=== PATIENT | male | born 1965 | race Caucasian/White ===

== ENCOUNTER 2017-06-20 14:58 | Emergency (ER) | payer OTHER ==
[~2017-06-20] VITALS: Ht 185.4 cm; Wt 85.5 kg
[~2017-06-20 14:58] MED LIST: DIPH50TA PO; LISI-360 PO; PRED20 PO; RANI150 PO; VITA100020 SL
[2017-06-20 14:59] VITALS: BP 169/114; PULSE 101; RESP 20; TEMP 98.9; O2SAT 98
--- NOTE | 2017-06-20 15:51 | RADRPT ---
EXAM DATE/TIME: 06/20/2017 15:21 [facility] COMPARISON: CHEST PA & LAT, June 17, 2014, 12:49. INDICATIONS : Chest and rib pain after hearing a popping sound when raising left arm. MEDICAL HISTORY : Hypertension. SURGICAL HISTORY : None. ENCOUNTER: Initial ACUITY: 2 days PAIN SCORE: 6/10 LOCATION: Left chest FINDINGS: PA and lateral views of the chest demonstrate the lungs to be symmetrically aerated without evidence of mass, infiltrate or effusion. The cardiomediastinal contours are unremarkable. Osseous structure s are intact. CONCLUSION: 1. No acute cardiopulmonary disease. 2. No displaced acute rib fractures or pneumothorax. Renan Raya MD on June 20, 2017 at 15:48 Board Certified Radiologist. This report was verified electronically.
[2017-06-20] MEDS ORDERED: AMLO10TA2 PO (16:03)
--- NOTE | 2017-06-20 16:03 | PD ---
HPI Chief Complaint: Medication Refill Request Time Seen by Provider: 15:55 Travel History International Travel<30 days: No Contact w/Intl Traveler<30days: No Traveled to known affect area: No History of Present Illness HPI Patient is a 52-year-old male presenting to the department for evaluation of left rib pain after stretching and hearing a pop a few days ago. He is also requesting a refill of lisinopril. He states he is unable to see a new primary doctor for another week and a half and he is currently out. He reports a medical history of hypertension and hyperlipidemia. He has no other complaints at this time. He denies any chest pain, shortness of breath, fever, chills, headache. PFSH Past Medical History Depression: Yes Heart Rhythm Problems: No Cancer: No Cardiac Catheterization: No High Cholesterol: Yes Chest Pain: No Congestive Heart Failure: No Diabetes: No Diminished Hearing: No Endocrine: No Genitourinary: No Hepatitis: Yes (C) Hypertension: Yes Immune Disorder: No Inguinal Hernia: Yes Musculoskeletal: No Neurologic: No Psychiatric: No Reproductive: No Respiratory: No Immunizations Current: Yes Thyroid Disease: No Past Surgical History Abdominal Surgery: Yes (RIGHT INGUINAL HERNIA) Coronary Artery Bypass Graft: No Other Surgery: Yes (inguinal hernia repair) Social History Alcohol Use: No (1 pk/wk) Tobacco Use: Yes Substance Use: Yes (marijuana) Allergies-Medications (Allergen,Severity, Reaction): Coded Allergies: *MDRO Multi-Drug Resistant Organism (Verified Allergy, Unknown, 03/07/16) MRSA in arm 2006. MRSA PCR Screen negative 04/12/15. Reported Meds & Prescriptions Reported Meds & Active Scripts Active Amlodipine (Amlodipine Besylate) 10 Mg Tab 10 Mg PO DAILY Diphenhydramine Hcl (Diphenhydramine HCl) 50 Mg Cap 50 Mg PO Q6H PRN 7 Days Zantac 150 Mg Tab (Ranitidine HCl) 150 Mg Tab 150 Mg PO DAILY 7 Days Deltasone 20 Mg Tab (Prednisone) 20 Mg Tab 40 Mg PO DAILY 5 Days Reported Vitamin B-12 Extended Rel (Miscellaneous Medication) 1,000 Mcg Subl 1,000 Mcg SL DAILY Lisinopril 10 mg (Lisinopril) 10 Mg Tab 1 Tab PO DAILY Review of Systems Except as stated in HPI: all other systems reviewed are Neg Respiratory: Positive: Pleuritic Pain Physical Exam Narrative GENERAL: Well-developed, well-nourished, alert male. Resting comfortably in no acute distress. SKIN: Warm and dry. HEAD: Atraumatic. Normocephalic. EYES: Pupils equal and round. No scleral icterus. No injection or drainage. ENT: No nasal bleeding or discharge. Mucous membranes pink and moist. NECK: Trachea midline. No JVD. CARDIOVASCULAR: Regular rate and rhythm. RESPIRATORY: No accessory muscle use. Clear to auscultation. Breath sounds equal bilaterally. GASTROINTESTINAL: Abdomen soft, non-tender, nondistended. Hepatic and splenic margins not palpable. MUSCULOSKELETAL: Extremities without clubbing, cyanosis, or edema. No obvious deformities. Mild tenderness to palpation to left lateral ribs NEUROLOGICAL: Awake and alert. No obvious cranial nerve deficits. Motor grossly within normal limits. Five out of 5 muscle strength in the arms and legs. Normal speech. PSYCHIATRIC: Appropriate mood and affect; insight and judgment normal. Data Data Last Documented VS Vital Signs Date Time Temp Pulse Resp B/P (MAP) Pulse Ox O2 Delivery O2 Flow Rate FiO2 06/20/17 16:05 06/20/17 14:59 98.9 101 20 98 Room Air Orders Orders Chest, Pa & Lat (06/20/17 ) Ed Discharge Order (06/20/17 16:03) MDM Medical Decision Making Medical Screen Exam Complete: Yes Emergency Medical Condition: Yes Medical Record Reviewed: Yes Interpretation(s) Vital Signs Date Time Temp Pulse Resp B/P (MAP) Pulse Ox O2 Delivery O2 Flow Rate FiO2 06/20/17 14:59 98.9 101 20 169/114 (132) 98 Room Air Differential Diagnosis Fracture vs strain vs hypertension vs other Narrative Course Pt presented for refill of BP med, he had been on lisinopril. He has an appointment with a new PCP in 1.5 weeks. He also reported rib pain after reaching 2 days ago. BP elevated. Pt appears well. CXR ordered. CXR which was read by the radiologist shows no acute abnormality. Upon review of medical records pt had an elevated BUN/Cr last year, and it appears lisinopril was discontinued. At this time patient will be given a prescription for amlodipine. He was advised to follow up with new PCP as scheduled. He was encouraged to return to the ED for any new or worsening symptoms. He can take OTC acetaminophen or ibuprofen as needed and as directed for pain. Pt verbalized understanding of instructions, patient is stable for discharge. Diagnosis Primary Impression: Hypertension Qualified Codes: I10 - Essential (primary) hypertension Additional Impression: Rib pain on left side Referrals: Primary Care Physician 1 week Patient Instructions: General Instructions, Hypertension (ED) Additional Instructions: Follow-up with your primary doctor Take medications as directed Maintain adequate fluid intake Reduce sodium intake Return to emergency department for any new or worsening symptoms Take [id number] ibuprofen or acetaminophen as needed and as directed for pain Med/Other Pt SpecificInfo: Prescription(s) given Scripts Amlodipine (Amlodipine) 10 Mg Tab 10 MG PO DAILY for Blood Pressure Management, #30 TAB 0 Refills Prov: Donna Powell 06/20/17 Disposition: 01 DISCHARGE HOME Condition: Stable Donna Powell Jun 20, 2017 16:03
== END 2017-06-20 16:10 | disposition home or self-care (01) ==
LOC: NETRI 14:58 → NEPE 16:10
DX: I10 Essential (primary) hypertension (principal); R07.81 Pleurodynia; Z72.0 Tobacco use
CPT/HCPCS: 71020; 99283

== ENCOUNTER 2017-08-15 21:50 | Inpatient (IN) | payer OTHER ==
[~2017-08-15] VITALS: Ht 185.4 cm; Wt 87.2 kg
[~2017-08-15 21:50] MED LIST changes: +AMLO10TA2 PO
[2017-08-15 21:51] VITALS: BP 173/112; PULSE 115; RESP 22; TEMP 98.1; O2SAT 100
[2017-08-15 21:56] VITALS: BP 174/118; PULSE 107; RESP 20; TEMP 97.7; O2SAT 97
[2017-08-15] MEDS ORDERED: LISI10TA3 PO (22:04)
--- NOTE | 2017-08-15 22:12 | PD ---
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 He has never had a stress test he has reactive history his mother at the age of 57 had a stroke. Patient's main complaint is a burning sensation that radiates from his hand up to his left chest it continues in the ER and is getting worse today he has not seen another doctor for this he's taken ibuprofen intermittently with mild relief however continues and now is getting worse. Denies nausea vomiting diarrhea however he does have some shortness of breath. He also has had a pneumonia in the past which she was in the ER and had been treated with antibiotics and DuoNeb's. He is mildly hypertensive systolic is 177 on initial eval COUNTS INCLUDE 234 BEDS AT THE [facility] Past Medical History Depression: Yes Cardiac Catheterization: No High Cholesterol: Yes Diminished Hearing: No Hepatitis: Yes (C) Hypertension: Yes Inguinal Hernia: Yes Immunizations Current: Yes Past Surgical History Abdominal Surgery: Yes (RIGHT INGUINAL HERNIA) Coronary Artery Bypass Graft: No Social History Alcohol Use: No (1 pk/wk) Tobacco Use: Yes Substance Use: Yes (marijuana) Allergies-Medications (Allergen,Severity, Reaction): Coded Allergies: *MDRO Multi-Drug Resistant Organism (Verified Allergy, Unknown, 03/07/16) MRSA in arm 2006. MRSA PCR Screen negative 04/12/15. Reported Meds & Prescriptions Reported Meds & Active Scripts Active Reported Lisinopril 10 Mg Tab 10 Mg PO DAILY Review of Systems Except as stated in HPI: all other systems reviewed are Neg Physical Exam Narrative GENERAL: Patient appears to be mildly uncomfortable pressure is 174 systolic SKIN: Warm and dry. HEAD: Atraumatic. Normocephalic. EYES: Pupils equal and round. No scleral icterus. No injection or drainage. ENT: No nasal bleeding or discharge. Mucous membranes pink and moist. NECK: Trachea midline. No JVD. CARDIOVASCULAR: Regular rate and rhythm. Patient's mother tachycardic pressure is 174 systolic. Chest wall I am unable to reproduce the pain that he is complaining of with percussion of his ribs RESPIRATORY: No accessory muscle use. wheeze diffuse GASTROINTESTINAL: Abdomen soft, non-tender, nondistended. Hepatic and splenic margins not palpable. MUSCULOSKELETAL: Extremities without clubbing, cyanosis, or edema. No obvious deformities. NEUROLOGICAL: Awake and alert. No obvious cranial nerve deficits. Motor grossly within normal limits. Five out of 5 muscle strength in the arms and legs. Normal speech. PSYCHIATRIC: Appropriate mood and affect; insight and judgment normal. Data Data Last Documented VS Vital Signs Date Time Temp Pulse Resp B/P (MAP) Pulse Ox O2 Delivery O2 Flow Rate FiO2 08/15/17 22:57 96 21 08/15/17 21:56 97.7 107 20 174/118 (136) 08/15/17 21:51 Room Air Orders Orders Electrocardiogram (08/15/17 22:08) Complete Blood Count With Diff (08/15/17 22:08) Comprehensive Metabolic Panel (08/15/17 22:08) Ckmb (Isoenzyme) Profile (08/15/17 22:08) Troponin I (08/15/17 22:08) Lipase (08/15/17 22:08) Ua Includes Microscopic (08/15/17 22:08) Magnesium (Mg) (08/15/17 22:08) Potassium, Serum (K) (08/15/17 22:08) Thyroid Stimulating Hormone (08/15/17 22:08) Chest, Pa & Lat (08/15/17 22:08) Aspirin Chew (Aspirin Chew) (08/15/17 22:15) Pantoprazole Inj (Protonix Inj) (08/15/17 22:15) Albuterol-Ipratropium Neb (Duoneb Neb) (08/15/17 22:15) CKMB (08/15/17 22:10) CKMB% (08/15/17 22:10) Heparin Inj (Heparin Inj) (08/15/17 23:30) Heparin-D5w 25,000 U/250 Ml (Heparin-D5w (08/15/17 23:30) Act Partial Throm Time (Ptt) (08/15/17 23:23) Prothrombin Time / Inr (Pt) (08/15/17 23:23) Cbc No Diff, Includes Plts (08/18/17 06:00) Act Partial Throm Time (Ptt) (08/16/17 06:23) Occult Blood (Hemoccult) Stool (08/15/17 23:23) Nitroglycerin 2% Oint (Nitroglycerin 2% (08/15/17 23:30) Morphine Inj (Morphine Inj) (08/15/17 23:45) Metoprolol Tartrate (Lopressor) (08/16/17 00:00) Admit Order (Ed Use Only) (08/15/17 23:53) Admit To Inpatient (08/15/17 ) Vital Signs (Adult) Q4H (08/15/17 23:54) Activity Oob With Assistance (08/15/17 23:54) District Sales Leader / Telemetry .CONTINUOUS (08/15/17 23:54) Diet Npo (08/16/17 Breakfast) Sodium Chloride 0.9% Flush (Ns Flush) (08/16/17 00:00) Sodium Chloride 0.9% Flush (Ns Flush) (08/16/17 09:00) Complete Blood Count With Diff (08/16/17 06:00) Creatine Kinase (Cpk) (08/16/17 05:00) Troponin I (08/16/17 05:00) Electrocardiogram (08/16/17 05:00) Electrocardiogram (08/16/17 11:00) Naloxone Inj (Narcan Inj) (08/16/17 00:00) Inpatient Certification (08/15/17 ) Labs Laboratory Tests Test 08/15/17 22:10 08/15/17 22:33 White Blood Count 3.7 TH/MM3 Red Blood Count 4.88 MIL/MM3 Hemoglobin 13.9 GM/DL Hematocrit 41.1 % Mean Corpuscular Volume 84.2 FL Mean Corpuscular Hemoglobin 28.5 PG Mean Corpuscular Hemoglobin Concent 33.8 % Red Cell Distribution Width 15.2 % Platelet Count 181 TH/MM3 Mean Platelet Volume 8.1 FL Neutrophils (%) (Auto) 55.5 % Lymphocytes (%) (Auto) 32.3 % Monocytes (%) (Auto) 7.2 % Eosinophils (%) (Auto) 4.3 % Basophils (%) (Auto) 0.7 % Neutrophils # (Auto) 2.1 TH/MM3 Lymphocytes # (Auto) 1.2 TH/MM3 Monocytes # (Auto) 0.3 TH/MM3 Eosinophils # (Auto) 0.2 TH/MM3 Basophils # (Auto) 0.0 TH/MM3 CBC Comment DIFF FINAL Differential Comment Prothrombin Time 9.6 SEC Prothromb Time International Ratio 0.9 RATIO Activated Partial Thromboplast Time 25.2 SEC Blood Urea Nitrogen 22 MG/DL Creatinine 1.23 MG/DL Random Glucose 112 MG/DL Total Protein 7.9 GM/DL Albumin 3.4 GM/DL Calcium Level 7.9 MG/DL Magnesium Level 1.9 MG/DL Alkaline Phosphatase 106 U/L Aspartate Amino Transf (AST/SGOT) 29 U/L Alanine Aminotransferase (ALT/SGPT) 44 U/L Total Bilirubin 0.5 MG/DL Sodium Level 137 MEQ/L Potassium Level 4.4 MEQ/L Chloride Level 105 MEQ/L Carbon Dioxide Level 22.3 MEQ/L Anion Gap 10 MEQ/L Estimat Glomerular Filtration Rate 62 ML/MIN Total Creatine Kinase 105 U/L Creatine Kinase MB 4.9 NG/ML Troponin I 0.42 NG/ML B-Type Natriuretic Peptide 986 PG/ML Lipase 121 U/L Thyroid Stimulating Hormone 3rd Gen 2.940 uIU/ML Urine Color YELLOW Urine Turbidity CLEAR Urine pH 6.0 Urine Specific [place] 1.021 Urine Protein 30 mg/dL Urine Glucose (UA) NEG mg/dL Urine Ketones NEG mg/dL Urine Occult Blood NEG Urine Nitrite NEG Urine Bilirubin NEG Urine Urobilinogen LESS THAN 2.0 MG/DL Urine Leukocyte Esterase NEG Urine RBC 1 /hpf Urine WBC 1 /hpf Urine Mucus FEW /lpf MDM Medical Decision Making Medical Screen Exam Complete: Yes Emergency Medical Condition: Yes Interpretation(s) EKG is normal sinus rhythm rate of [address] segments in V4 V5 and mildly and V3 there are no elevations and there is left ventricular hypertrophy pattern Differential Diagnosis Differential diagnoses include costochondritis versus PE versus pneumonia versus pleural effusion versus myocardial ischemia versus traumatic muscle strain versus other Narrative Course Patient's EKG has depressed ST segment in V4 V5 and patient's troponin returns 0.42 patient is immediately given nitro paste aspirin and heparin bolus heparin drip and admitted to telemetry any CIC give report to the hospitalist will be seen by cardiology in the morning for possible catheter patient denies chest pain at this time Critical Care Narrative 30 minutes critical cardiac care evaluating EKG evaluated troponins giving him critical care medications to prevent any further coagulopathy or clotting at the coronary arteries and admitted to monitor closely in the ER he is monitored for over an hour Diagnosis Primary Impression: NSTEMI (non-ST elevated myocardial infarction) Additional Impression: Abnormal electrocardiogram [ECG] [EKG] Admitting Information Admitting Physician Requests: Admit Johnson Cook MD Aug 15, 2017 22:12
[2017-08-15] MEDS ORDERED: ASPIRIN 81 MG CHEW TAB CHEW ONE (22:15)
[2017-08-15] MEDS ORDERED: RESP: ALBUTEROL 2.5 MG/IPRATROPIUM 0.5 MG NEB (SCH) NEB ONE (22:15)
[2017-08-15] MEDS ORDERED: PANTOPRAZOLE SODIUM 40 MG VIAL IV PUSH ONE (22:15)
[2017-08-15 22:35] LABS: AUTOMATED NEUTROPHIL # 2.1 TH/MM3 (1.8-7.7); BASOPHIL % 0.7 % (0.0-2.0); EOSINOPHIL # 0.2 TH/MM3 (0-0.4); EOSINOPHIL % 4.3 % (0.0-4.0); HEMATOCRIT 41.1 % (39.0-51.0); HEMOGLOBIN 13.9 GM/DL (13.0-17.0); LYMPH % 32.3 % (9.0-44.0); LYMPHOCYTE # 1.2 TH/MM3 (1.0-4.8); MEAN CELL VOLUME 84.2 FL (80.0-100.0); MEAN CORPUSCULAR HEMOGLOBIN 28.5 PG (27.0-34.0); MEAN CORPUSCULAR HGB CONC 33.8 % (32.0-36.0); MEAN PLATELET VOLUME 8.1 FL (7.0-11.0); MONO % 7.2 % (0.0-8.0); MONOCYTE # 0.3 TH/MM3 (0-0.9); NEUT % 55.5 % (16.0-70.0); PLATELET COUNT 181 TH/MM3 (150-450); RED BLOOD COUNT 4.88 MIL/MM3 (4.50-5.90); RED CELL DISTRIBUTION WIDTH 15.2 % (11.6-17.2); WHITE BLOOD COUNT 3.7 TH/MM3 (4.0-11.0)
--- NOTE | 2017-08-15 22:37 | RADRPT ---
EXAM DATE/TIME: 08/15/2017 22:21 [facility] COMPARISON: CHEST PA & LAT, June 20, 2017, 15:21. INDICATIONS : Left sided chest pain, shortness of breath for 4 days MEDICAL HISTORY : Hypertension. SURGICAL HISTORY : None. ENCOUNTER: Initial ACUITY: 4 - 6 days PAIN SCORE: 9/10 LOCATION: Left chest FINDINGS: PA and lateral views of the chest demonstrate the lungs to be symmetrically aerated without evidence of mass, infiltrate or effusion. Mild cardiomegaly. No pulmonary vascular engorgement. Old stable com pression deformity involving the approximate L1 vertebral body. CONCLUSION: Mild cardiomegaly without pulmonary vascular engorgement. Bud Tolentino Jr., MD on August 15, 2017 at 22:34 Board Certified Radiologist. This report was verified electronically.
[2017-08-15 22:44] LABS: BILIRUBIN, URINE NEG (NEG); BLOOD, URINE NEG (NEG); GLUCOSE,URINE NEG (NEG); KETONE, URINE NEG (NEG); MUCUS URINE FEW /lpf (OCC); NITRITE,URINE NEG (NEG); URINE COLOR YELLOW (YELLW/STRAW); URINE LEUKOCYTE ESTERASE NEG (NEG)
[2017-08-15 22:57] VITALS: O2SAT 96
[2017-08-15 23:07] LABS: ALBUMIN 3.4 GM/DL (3.4-5.0); AST (GOT) 29 U/L (15-37); BICARBONATE 22.3 MEQ/L (21.0-32.0); BLOOD UREA NITROGEN 22 MG/DL (7-18); CALCIUM 7.9 MG/DL (8.5-10.1); CHLORIDE 105 MEQ/L (98-107); CREATININE 1.23 MG/DL (0.60-1.30); GLOMERULAR FILTRATION RATE 62 ML/MIN (>89); GLUCOSE,RANDOM 112 MG/DL (74-106); LIPASE 121 U/L (73-393); MAGNESIUM 1.9 MG/DL (1.5-2.5); SODIUM (NA) 137 MEQ/L (136-145)
[2017-08-15 23:16] LABS: ALKALINE PHOSPHATASE 106 U/L (45-117); ALT (GPT) 44 U/L (12-78); TOTAL BILIRUBIN ADULT 0.5 MG/DL (0.2-1.0); TOTAL PROTEIN 7.9 GM/DL (6.4-8.2); TROPONIN I 0.42 NG/ML (0.02-0.05)
[2017-08-15] MEDS ORDERED: NITROGLYCERIN 2% OINT 1 GM PACKET TOPICAL ONE (23:30)
[2017-08-15] MEDS ORDERED: HEPARIN-D5W 25,000 U/250 ML 250 ML IV PRN (23:30)
[2017-08-15] MEDS ORDERED: HEPARIN SODIUM - IV 10,000 UNITS/10 ML VIAL IV ONE (23:30)
[2017-08-15] MEDS ORDERED: MORPHINE SULFATE 2 MG/ML INJ IV PUSH ONE (23:45)
[2017-08-16] VITALS (18 sets, daily range): BP systolic 105–143; BP diastolic 65–87; PULSE 77–102; RESP 16–29; TEMP 97.7–98.7; O2SAT 95–99
[2017-08-16] MEDS ORDERED: NALOXONE HCL 0.4 MG/ML AMP IV PUSH PRN
[2017-08-16] MEDS ORDERED: METOPROLOL TARTRATE 25 MG TAB PO ONE
[2017-08-16] MEDS ORDERED: NITROGLYCERIN 0.4 MG SL 25 TABS/BTL SL PRN
[2017-08-16 00:06] LABS: INTERNATIONAL NORMALIZED RATIO 0.9 RATIO; PROTHROMBIN TIME - PATIENT 9.6 SEC (9.8-11.6)
[2017-08-16] MEDS ORDERED: RESP: IPRATROPIUM 0.5 MG/2.5 ML NEB NEB ONE (01:15)
[2017-08-16] MEDS ORDERED: RESP: ALBUTEROL 2.5 MG/IPRATROPIUM 0.5 MG NEB (SCH) NEB ONE (01:15)
--- NOTE | 2017-08-16 01:20 | HHI.HP ---
[facility] Titus Eli MD Admission Diagnosis non stemi Diagnoses: Chief Complaint: Chest pain Travel History International Travel<30 Days: No Contact w/Intl Traveler <30 Da: No Traveled to Known Affected Are: No History of Present Illness 52-year-old male with a history of hypertension, HIV, and hep C presented to the ED with a 2 week long history of chest pain. He describes the chest pain as pressure-like, intermittent 10 /10, worse with exertion with associated shortness of breath. Patient states he notices when he does heavy lifting at work and he overexerts himself he begins to have chest pain that radiates to his left arm and he begins to have shortness of breath, he also experiences shortness of breath at night when laying flat. He has been out of his blood pressure medicines for the past 2 days with states his blood pressure has not been well controlled. He has not been able to get into see his primary care physician. He denies any recent fever, chills, or headaches. Past Family Social History Past Medical History Hep C HIV (not on medication) HTN Past Surgical History Hernia repair Nasal surgery Reported Medications Reported Meds & Active Scripts Active Reported Lisinopril 10 Mg Tab 10 Mg PO DAILY Allergies: Coded Allergies: No Known Allergies (Unverified , 08/16/17) Active Ordered Medications Current Medications Medications (Trade) Dose Ordered Sig/[place] Route Start Time Stop Time Status Last Admin Heparin Sodium/ Dextrose 250 ml @ 11 mls/hr TITRATE PRN IV 08/15/17 23:30 08/16/17 00:10 (NS Flush) 2 ml UNSCH PRN IV FLUSH 08/16/17 00:00 (NS Flush) 2 ml BID IV FLUSH 08/16/17 09:00 (Narcan Inj) 0.4 mg UNSCH PRN IV PUSH 08/16/17 00:00 (Ecotrin Ec) 325 mg DAILY PO 08/16/17 09:00 (Nitrostat Sl) 0.4 mg Q5M PRN SL 08/16/17 00:00 (Coreg) 3.125 mg Q12HR PO 08/16/17 09:00 Family History Mom: CVA, heart disease Dad: DM Social History Tobacco use: 1/2 PPD Alcohol use: Denies Illicit drug use: Denies Physical Exam Vital Signs Vital Signs Date Time Temp Pulse Resp B/P (MAP) Pulse Ox O2 Delivery O2 Flow Rate FiO2 08/15/17 22:57 96 21 08/15/17 21:56 97.7 107 20 174/118 (136) 97 08/15/17 21:51 98.1 115 22 173/112 (132) 100 Room Air Physical Exam GENERAL: This is a well-nourished, well-developed patient, in no apparent distress. SKIN: No rashes, ecchymoses or lesions. Cool and dry. HEAD: Atraumatic. Normocephalic. EYES: Pupils equal round and reactive. ENT: Nose without bleeding, purulent drainage or septal hematoma. Airway patent. NECK: Trachea midline. No JVD or lymphadenopathy. CARDIOVASCULAR: Regular rate and rhythm without murmurs, gallops, or rubs. RESPIRATORY: Left base crakles, Scattered wheezes, no rales, or rhonchi. GASTROINTESTINAL: Abdomen soft, non-tender, nondistended. MUSCULOSKELETAL: Extremities without clubbing, cyanosis, or edema. No joint tenderness, effusion, or edema noted. No calf tenderness. NEUROLOGICAL: Awake and alert. Motor and sensory grossly within normal limits. Normal speech. Laboratory Laboratory Tests Test 08/15/17 22:10 08/15/17 22:33 White Blood Count 3.7 Red Blood Count 4.88 Hemoglobin 13.9 Hematocrit 41.1 Mean Corpuscular Volume 84.2 Mean Corpuscular Hemoglobin 28.5 Mean Corpuscular Hemoglobin Concent 33.8 Red Cell Distribution Width 15.2 Platelet Count 181 Mean Platelet Volume 8.1 Neutrophils (%) (Auto) 55.5 Lymphocytes (%) (Auto) 32.3 Monocytes (%) (Auto) 7.2 Eosinophils (%) (Auto) 4.3 Basophils (%) (Auto) 0.7 Neutrophils # (Auto) 2.1 Lymphocytes # (Auto) 1.2 Monocytes # (Auto) 0.3 Eosinophils # (Auto) 0.2 Basophils # (Auto) 0.0 CBC Comment DIFF FINAL Differential Comment Prothrombin Time 9.6 Prothromb Time International Ratio 0.9 Activated Partial Thromboplast Time 25.2 Blood Urea Nitrogen 22 Creatinine 1.23 Random Glucose 112 Total Protein 7.9 Albumin 3.4 Calcium Level 7.9 Magnesium Level 1.9 Alkaline Phosphatase 106 Aspartate Amino Transf (AST/SGOT) 29 Alanine Aminotransferase (ALT/SGPT) 44 Total Bilirubin 0.5 Sodium Level 137 Potassium Level 4.4 Chloride Level 105 Carbon Dioxide Level 22.3 Anion Gap 10 Estimat Glomerular Filtration Rate 62 Total Creatine Kinase 105 Creatine Kinase MB 4.9 Troponin I 0.42 Lipase 121 Thyroid Stimulating Hormone 3rd Gen 2.940 Urine Color YELLOW Urine Turbidity CLEAR Urine pH 6.0 Urine Specific [place] 1.021 Urine Protein 30 Urine Glucose (UA) NEG Urine Ketones NEG Urine Occult Blood NEG Urine Nitrite NEG Urine Bilirubin NEG Urine Urobilinogen LESS THAN 2.0 Urine Leukocyte Esterase NEG Urine RBC 1 Urine WBC 1 Urine Mucus FEW Result Diagram: 08/15/[id number] Imaging Last Impressions Chest X-Ray 08/15/172207 Signed Impressions: Service Date/Time: Tuesday, August 15, 2017 22:21 - CONCLUSION: Mild cardiomegaly without pulmonary vascular engorgement. Bud Tolentino Jr., MD [place] VTE Risk Assessment Caprini VTE Risk Assessment: Mod/High Risk (score >= 2) Caprini Risk Assessment Model Point Value = 1 Point Value = 2 Point Value = 3 Point Value = 5 Age 41-60 Minor surgery BMI > 25 kg/m2 Swollen legs Varicose veins or History of unexplained or recurrent spontaneous Oral contraceptives or hormone replacement Sepsis (< 1 month) Serious lung disease, including pneumonia (< 1 month) Abnormal pulmonary function Acute myocardial infarction Congestive heart failure (< 1 month) History of inflammatory bowel disease Medical patient at bed rest Age 61-74 Arthroscopic surgery Major open surgery (> 45 min) Laparoscopic surgery (> 45 min) Malignancy Confined to bed (> 72 hours) Immobilizing plaster cast Central venous access Age >= 75 History of VTE Family history of VTE Factor V Leiden Prothrombin [id number] Lupus anticoagulant Anticardiolipin antibodies Elevated serum homocysteine Heparin-induced thrombocytopenia Other congenital or acquired thrombophilia Stroke (< 1 month) Elective arthroplasty Hip, pelvis, or leg fracture Acute spinal cord injury (< 1 month) Prophylaxis Regimen Total Risk Factor Score Risk Level Prophylaxis Regimen 0-1 Low Early ambulation 2 Moderate Order ONE of the following: *Sequential Compression Device (SCD) *Heparin 5000 units SQ BID 3-4 Higher Order ONE of the following medications: *Heparin 5000 units SQ TID *Enoxaparin/Lovenox 40 mg SQ daily (WT < 150 kg, CrCl > 30 mL/min) *Enoxaparin/Lovenox 30 mg SQ daily (WT < 150 kg, CrCl > 10-29 mL/min) *Enoxaparin/Lovenox 30 mg SQ BID (WT < 150 kg, CrCl > 30 mL/min) AND/OR *Sequential Compression Device (SCD) 5 or more Highest Order ONE of the following medications: *Heparin 5000 units SQ TID (Preferred with Epidurals) *Enoxaparin/Lovenox 40 mg SQ daily (WT < 150 kg, CrCl > 30 mL/min) *Enoxaparin/Lovenox 30 mg SQ daily (WT < 150 kg, CrCl > 10-29 mL/min) *Enoxaparin/Lovenox 30 mg SQ BID (WT < 150 kg, CrCl > 30 mL/min) AND *Sequential Compression Device (SCD) Assessment and Plan Problem List: (1) NSTEMI (non-ST elevated myocardial infarction) ICD Code: I21.4 - Non-ST elevation (NSTEMI) myocardial infarction Status: Acute (2) Hypertension ICD Code: I10 - Hypertension Status: Chronic (3) CHF (congestive heart failure) ICD Code: I50.9 - Heart failure, unspecified Assessment and Plan 52-year-old male with a history of hypertension and hep C presented to the ED with a 2 week long history of chest pain. NSTEMI, troponin .4 EKG reviewed and shows sinus tachycardia, no ST elevation -Serial troponin and EKGs -Consult cardiology -Nitropaste and coreg ordered -Heparin Drip -Pain management with IV morphine Questionable CHF, new onset, patient with orthopnea and crackles in left lung base -BNP ordered, BNP 926, lasix 20mg IV ordered -2D echo ordered HTN, chronic, currently uncontrolled -Resume home lisinopril, adjust as needed -monitor vitals DVT prophylaxis: Heparin Discussed Condition With Patient and RN Physician Certification 2 Midnight Certification Type: Admission for Inpatient Services Order for Inpatient Services The services are ordered in accordance with Medicare regulations or non- Medicare payer requirements, as applicable. In the case of services not specified as inpatient-only, they are appropriately provided as inpatient services in accordance with the 2-midnight benchmark. Estimated LOS (days): 2 days is the estimated time the patient will need to remain in the hospital, assuming treatment plan goals are met and no additional complications. Post-Hospital Plan: Home Bonita Keith Aug 16, 2017 01:20
[2017-08-16] MEDS ORDERED: MORPHINE SULFATE 2 MG/ML INJ IM PRN (01:30)
[2017-08-16] MEDS ORDERED: FUROSEMIDE 20 MG/2 ML VIAL IV PUSH ONE (02:15)
[2017-08-16] MEDS ORDERED: RESP: ALBUTEROL 2.5 MG/IPRATROPIUM 0.5 MG NEB (SCH) NEB (04:00)
[2017-08-16] MEDS: MORPHINE SULFATE 2 MG/ML INJ IV PUSH PRN ×4 (04:59→19:02)
[2017-08-16] MEDS: RESP: IPRATROPIUM 0.5 MG/2.5 ML NEB NEB SCH ×6 (05:56→23:39)
[2017-08-16 06:23] LABS: AUTOMATED NEUTROPHIL # 1.1 TH/MM3 (1.8-7.7); BASOPHIL % 0.9 % (0.0-2.0); EOSINOPHIL # 0.1 TH/MM3 (0-0.4); HEMOGLOBIN 12.3 GM/DL (13.0-17.0); LYMPHOCYTE # 0.9 TH/MM3 (1.0-4.8); MEAN CELL VOLUME 84.1 FL (80.0-100.0); MEAN CORPUSCULAR HEMOGLOBIN 28.7 PG (27.0-34.0); MEAN CORPUSCULAR HGB CONC 34.2 % (32.0-36.0); MEAN PLATELET VOLUME 8.2 FL (7.0-11.0); MONO % 9.4 % (0.0-8.0); MONOCYTE # 0.2 TH/MM3 (0-0.9); NEUT % 46.7 % (16.0-70.0); PLATELET COUNT 173 TH/MM3 (150-450); RED BLOOD COUNT 4.28 MIL/MM3 (4.50-5.90); RED CELL DISTRIBUTION WIDTH 15.1 % (11.6-17.2); WHITE BLOOD COUNT 2.4 TH/MM3 (4.0-11.0)
[2017-08-16 06:50] LABS: BICARBONATE 21.8 MEQ/L (21.0-32.0); CALCIUM 8.4 MG/DL (8.5-10.1); CREATININE 1.05 MG/DL (0.60-1.30)
[2017-08-16 07:01] LABS: TROPONIN I 0.68 NG/ML (0.02-0.05)
[2017-08-16] MEDS ORDERED: SODIUM CHLORIDE 0.9% FLUSH 10 ML FLUSH IV FLUSH SCH (09:00)
[2017-08-16] MEDS ORDERED: ASPIRIN EC 325 MG TABEC PO SCH (09:00)
[2017-08-16] MEDS: LISINOPRIL 10 MG TAB PO SCH (09:21)
[2017-08-16] MEDS: FUROSEMIDE 20 MG/2 ML VIAL IV PUSH SCH ×2 (09:21→17:00)
[2017-08-16] MEDS: CARVEDILOL 3.125 MG TAB PO SCH ×2 (09:21→21:27)
--- NOTE | 2017-08-16 11:18 | HHI.PR ---
Subjective Remarks Follow-up non-ST elevation [place] 08/16/17-patient seen and examined, still with chest pain along with shortness of breath. Currently nothing by mouth pending left heart catheterization this afternoon. Objective Vitals Vital Signs Date Time Temp Pulse Resp B/P (MAP) Pulse Ox O2 Delivery O2 Flow Rate FiO2 08/16/17 04:30 97.7 77 18 118/79 (92) 99 08/16/17 04:15 79 16 107/65 (79) 95 08/16/17 02:03 18 08/16/17 01:46 82 18 131/78 (95) 96 Room Air 08/16/17 00:00 90 16 143/86 (105) 97 Room Air 08/15/17 22:57 96 21 08/15/17 21:56 97.7 107 20 174/118 (136) 97 08/15/17 21:51 98.1 115 22 173/112 (132) 100 Room Air I/O 08/15/17 08/15/17 08/15/17 08/16/17 08/16/17 08/16/17 07:00 15:00 23:00 07:00 15:00 23:00 Output Total 1400 ml Balance -1400 ml Output Urine Total 1400 ml # Bowel Movements 0 Result Diagram: 08/16/17 0610 08/16/17 0610 Imaging Last Impressions Chest X-Ray 08/15/172207 Signed Impressions: Service Date/Time: Tuesday, August 15, 2017 22:21 - CONCLUSION: Mild cardiomegaly without pulmonary vascular engorgement. Bud Tolentino Jr., MD Objective Remarks GENERAL: NAD SKIN: Warm and dry. HEAD: Normocephalic. EYES: No scleral icterus. No injection or drainage. NECK: Supple, trachea midline. No JVD or lymphadenopathy. CARDIOVASCULAR: Regular rate and rhythm without murmurs, gallops, or rubs. RESPIRATORY: Breath sounds equal bilaterally. No accessory muscle use. GASTROINTESTINAL: Abdomen soft, non-tender, nondistended. MUSCULOSKELETAL: No cyanosis, or edema. BACK: Nontender without obvious deformity. No CVA tenderness. A/P Problem List: (1) NSTEMI (non-ST elevated myocardial infarction) ICD Code: I21.4 - Non-ST elevation (NSTEMI) myocardial infarction Status: Acute (2) Hypertension ICD Code: I10 - Hypertension Status: Chronic (3) CHF (congestive heart failure) ICD Code: I50.9 - Heart failure, unspecified Assessment and Plan 52-year-old man with NSTEMI, troponin .4 EKG reviewed and shows sinus tachycardia, no ST elevation -Serial troponin and EKGs -Appreciate input from cardiology and plan for left heart catheterization today 02/13/18 -Nitro paste and Coreg -Heparin Drip -Pain management with IV morphine Questionable CHF, new onset, patient with orthopnea and crackles in left lung base -BNP ordered, BNP 926, Lasix 20mg IV ordered -2D echo pending HTN, chronic, currently uncontrolled -Continue home lisinopril, adjust as needed -monitor vitals DVT prophylaxis: Heparin Dominick Oconnor MD Aug 16, 2017 11:18
[2017-08-16] MEDS ORDERED: HEPARIN-NS/PF INJ 1,000 ML ONE (12:32)
[2017-08-16] MEDS ORDERED: MIDAZOLAM HCL 2 MG/2 ML VIAL ONE (12:32)
[2017-08-16 12:54] LABS: TROPONIN I 0.55 NG/ML (0.02-0.05)
[2017-08-16] MEDS ORDERED: HEPARIN SODIUM - IV 10,000 UNITS/10 ML VIAL ONE (13:22)
[2017-08-16] MEDS ORDERED: TIROFIBAN INFUSION INJ 250 ML IV ONE (13:29)
[2017-08-16] MEDS: TIROFIBAN INFUSION INJ 250 ML IV SCH ×2 (13:39→14:17)
[2017-08-16] MEDS ORDERED: CLOPIDOGREL 300 MG TAB ONE (13:44)
[2017-08-16] MEDS: CLOPIDOGREL 300 MG TAB PO ONE ×2 (13:48→15:15)
[2017-08-16] MEDS ORDERED: SODIUM CHLORIDE 0.9% FLUSH 10 ML FLUSH IV FLUSH PRN ×2 (14:30)
[2017-08-16] MEDS ORDERED: MISC INFORMATION XX ONE (14:30)
--- NOTE | 2017-08-16 17:32 | MB ---
cc: ANJU SEWELL MD DATE OF CONSULTATION 08/16/17 HISTORY OF PRESENT ILLNESS Jimmy is a very pleasant 52 year old gentleman, former smoker, began developing chest pain at times severe 2-3 weeks prior to admission described also with pain radiating to the left arm described as burning and pressure-like. It became much more severe last night. He subsequently presented to the emergency room. He otherwise denies any fevers, chills, cough, GI or bleeding, paroxysmal nocturnal dyspnea, orthopnea, syncope or dizziness. PAST MEDICAL HISTORY As per history present illness. 1. He is HIV positive. 2. History of hepatitis C, 3. History of pneumonia. 4. Hyperlipidemia. 5. Right inguinal hernia. SOCIAL HISTORY He does smoke a pack of cigarettes per week. Denies alcohol use, also uses marijuana. ALLERGIES MRSA MEDICATIONS Prior to admission 1. Lisinopril 10 mg daily. Medications in the hospital 1. Aspirin 325 daily, 2. Carvedilol 3.25 q.12 h 3. Lisinopril 10 mg daily. 4. Lasix 20 mg IV b.i.d., 5. Atrovent. PHYSICAL EXAMINATION VITAL SIGNS: Pulse 77, blood pressure 105/67, respiratory rate 18, sats 98% on room air. GENERAL: He is alert and oriented times three in no acute distress. NECK: Supple. No JVD or bruit. CARDIOVASCULAR: S1, S2. No murmurs, rubs or gallops. LUNGS: Clear to auscultation bilaterally. ABDOMEN: Soft, nontender, nondistended, positive bowel sounds. EXTREMITIES: No lower extremity edema. LABORATORY DATA White count 2.4, hemoglobin 12.8, hematocrit 36.0, platelet count 173. Sodium 136, potassium 4.0, chloride 106, bicarb 21.8, BUN 20, creatinine 1.05, glucose 112 on admission. AST 29, ALT 44, troponin is 0.42 followed by 0.68 then 0.55. CKs are negative x3. TSH is 2.940, INR 0.9. IMAGING STUDIES Chest x-ray - Mild cardiomegaly without pulmonary vascular engorgement. CARDIOLOGY STUDIES EKG on admission. sinus tachycardia at 108 beats per minute with 1-[address] segment depression V4, V5, V6, LVH. DIAGNOSES 1. Non STEMI 2. Hypertension. 3. Hepatitis C 4. HIV. 5. Neutropenia. 6. Anemia. 7. Hyperglycemia. 8. Tobacco abuse. DISCUSSION Left heart catheterization is medically necessary on an urgent basis due to presentation with non STEMI. Agree with aspirin, Coreg, lisinopril. Further recommendations based on the patient's coronary anatomy. MD LISSETTE Griggs/ /4:09 PM /5:04 PM
--- NOTE | 2017-08-16 20:42 | EKG ---
Date Performed: 08/16/2017 Time Performed: 17:20:20 PTAGE: 52 years EKG: Sinus rhythm LVH with secondary repolarization abnormality Anterolateral ST-T changes may be due to hypertrophy a nd/or ischemia Abnormal ECG No significant change from prior electrocardiogram. PREVIOUS TRACING : 08/16/2017 07.12 DOCTOR: Heri Valverde Interpretating Date/Time 08/16/2017 20:40:54
[2017-08-16] MEDS: SODIUM CHLORIDE 0.9% FLUSH 10 ML FLUSH IV FLUSH SCH (21:27)
--- NOTE | 2017-08-16 21:56 | EKG ---
Date Performed: 08/16/2017 Time Performed: 07:12:56 PTAGE: 52 years EKG: Sinus rhythm POSSIBLE LEFT VENTRICULAR HYPERTROPHY ST DEVIATION AND MODERATE T-WAVE ABNORMALITY, CONSIDER LATERAL ISCHEMIA ABNORMAL ECG PREVIOUS TRACING : 08/15/2017 23.58 Since previous tracing, no significant change noted DOCTOR: Rahul Gutiérrez Interpretating Date/Time 08/16/2017 21:54:47
--- NOTE | 2017-08-16 22:07 | EKG ---
Date Performed: 08/15/2017 Time Performed: 23:58:52 PTAGE: 52 years EKG: Sinus rhythm POSSIBLE LEFT ATRIAL ENLARGEMENT POSSIBLE LEFT VENTRICULAR HYPERTROPHY ST DEVIATION AND MODERATE T-W AVE ABNORMALITY, CONSIDER ANTEROLATERAL ISCHEMIA ABNORMAL ECG PREVIOUS TRACING : 08/15/2017 21.57 Since previous tracing, no significant change noted DOCTOR: Rahul Gutiérrez Interpretating Date/Time 08/16/2017 22:06:41
--- NOTE | 2017-08-16 22:13 | EKG ---
Date Performed: 08/15/2017 Time Performed: 21:57:09 PTAGE: 52 years EKG: SINUS TACHYCARDIA LEFT ATRIAL ENLARGEMENT LEFT VENTRICULAR HYPERTROPHY AND ST-T CHANGE ABNO RMAL ECG PREVIOUS TRACING : 06/17/2014 12.53 Compared to previous tracing ST-T are new DOCTOR: Rahul Gutiérrez Interpretating Date/Time 08/16/2017 22:11:52
[2017-08-17] VITALS (13 sets, daily range): BP systolic 123–134; BP diastolic 77–93; PULSE 86–102; RESP 16–18; TEMP 97.8–98; O2SAT 95–100
[2017-08-17] MEDS: RESP: IPRATROPIUM 0.5 MG/2.5 ML NEB NEB SCH ×2 (03:46→08:56)
[2017-08-17] MEDS: TIROFIBAN INFUSION INJ 250 ML IV SCH (03:58)
[2017-08-17 06:29] LABS: AUTOMATED NEUTROPHIL # 2.8 TH/MM3 (1.8-7.7); BASOPHIL % 0.3 % (0.0-2.0); EOSINOPHIL # 0.2 TH/MM3 (0-0.4); EOSINOPHIL % 4.4 % (0.0-4.0); HEMATOCRIT 40.8 % (39.0-51.0); HEMOGLOBIN 13.8 GM/DL (13.0-17.0); LYMPH % 23.2 % (9.0-44.0); MEAN CELL VOLUME 84.1 FL (80.0-100.0); MEAN CORPUSCULAR HEMOGLOBIN 28.4 PG (27.0-34.0); MEAN CORPUSCULAR HGB CONC 33.8 % (32.0-36.0); MEAN PLATELET VOLUME 8.4 FL (7.0-11.0); MONO % 6.7 % (0.0-8.0); MONOCYTE # 0.3 TH/MM3 (0-0.9); NEUT % 65.4 % (16.0-70.0); PLATELET COUNT 183 TH/MM3 (150-450); RED BLOOD COUNT 4.85 MIL/MM3 (4.50-5.90); WHITE BLOOD COUNT 4.2 TH/MM3 (4.0-11.0)
[2017-08-17 07:01] LABS: BICARBONATE 24.2 MEQ/L (21.0-32.0); CALCIUM 8.7 MG/DL (8.5-10.1); CREATININE 1.25 MG/DL (0.60-1.30)
[2017-08-17 07:04] LABS: CHOLESTEROL/ HDL RATIO 4.5 RATIO; HDL CHOLESTEROL 32.4 MG/DL (40.0-60.0)
[2017-08-17] MEDS: FUROSEMIDE 20 MG/2 ML VIAL IV PUSH SCH (08:28)
[2017-08-17] MEDS: SODIUM CHLORIDE 0.9% FLUSH 10 ML FLUSH IV FLUSH SCH (08:28)
[2017-08-17] MEDS: LISINOPRIL 10 MG TAB PO SCH (08:28)
[2017-08-17] MEDS: CARVEDILOL 3.125 MG TAB PO SCH (08:28)
[2017-08-17] MEDS ORDERED: CLOPIDOGREL 75 MG TAB PO SCH (09:00)
[2017-08-17] MEDS ORDERED: ASPIRIN 81 MG CHEW TAB PO SCH (09:00)
--- NOTE | 2017-08-17 10:49 | PD.CARD.PN ---
Subjective Subjective Remarks alert in nad, denies chest pain Objective Medications Current Medications Medications (Trade) Dose Ordered Sig/Kaylah Route Start Time Stop Time Status Last Admin (Narcan Inj) 0.4 mg UNSCH PRN IV PUSH 08/16/17 00:00 (Nitrostat Sl) 0.4 mg Q5M PRN SL 08/16/17 00:00 (Coreg) 3.125 mg Q12HR PO 08/16/17 09:00 08/17/17 08:28 (Atrovent Neb) 0.5 mg Q4HR NEB NEB 08/16/17 04:00 08/17/17 08:56 (Prinivil) 10 mg DAILY PO 08/16/17 09:00 08/17/17 08:28 (Morphine Inj) 2 mg Q3H PRN IV PUSH 08/16/17 04:30 08/16/17 19:02 (Lasix Inj) 20 mg BID@,18 IV PUSH 08/16/17 09:00 08/17/17 08:28 (NS Flush) 2 ml UNSCH PRN IV FLUSH 08/16/17 14:30 (NS Flush) 2 ml BID IV FLUSH 08/16/17 21:00 08/17/17 08:28 (Aspirin Chew) 162 mg DAILY PO 08/17/17 09:00 08/17/17 08:27 (Plavix) 75 mg DAILY PO 08/17/17 09:00 08/17/17 08:27 Vital Signs / I&O Vital Signs Date Time Temp Pulse Resp B/P (MAP) Pulse Ox O2 Delivery O2 Flow Rate FiO2 08/17/17 10:23 91 08/17/17 09:00 91 08/17/17 08:45 94 08/17/17 08:45 97.8 102 18 134/93 (107) 95 08/17/17 06:33 88 08/17/17 05:11 98.0 97 16 128/77 (94) 100 08/17/17 05:10 88 08/17/17 04:54 86 08/17/17 04:00 86 08/17/17 03:00 86 08/17/17 02:00 86 08/17/17 01:10 94 08/17/17 00:00 88 08/16/17 23:39 95 21 08/16/17 23:32 98.7 98 18 139/78 (98) 98 08/16/17 23:30 102 08/16/17 22:00 93 08/16/17 21:23 98.7 90 20 128/87 (101) 98 08/16/17 21:00 91 08/16/17 20:00 95 08/16/17 19:46 18 08/16/17 19:00 100 08/16/17 18:02 86 08/16/17 17:23 88 08/16/17 16:37 92 08/16/17 15:45 92 08/16/17 15:45 98.2 84 16 136/85 (102) 99 08/16/17 14:21 98 Room Air I/O 08/16/17 08/16/17 08/16/17 08/17/17 08/17/17 08/17/17 07:00 15:00 23:00 07:00 15:00 23:00 Intake Total 480 ml 240 ml 22 ml Output Total 1400 ml 1450 ml 1550 ml Balance -1400 ml -970 ml -1310 ml 22 ml Intake Oral 480 ml 240 ml IV Total 22 ml Output Urine Total 1400 ml 1450 ml 1550 ml # Voids 5 # Bowel Movements 0 Physical Exam GENERAL: SKIN: Warm and dry. HEAD: Normocephalic. EYES: No scleral icterus. No injection or drainage. NECK: Supple, trachea midline. No JVD or lymphadenopathy. CARDIOVASCULAR: Regular rate and rhythm without murmurs, gallops, or rubs. RESPIRATORY: Breath sounds equal bilaterally. No accessory muscle use. GASTROINTESTINAL: Abdomen soft, non-tender, nondistended. MUSCULOSKELETAL: No cyanosis, or edema. BACK: Nontender without obvious deformity. No CVA tenderness. Laboratory Laboratory Tests Test 08/16/17 11:44 08/17/17 04:41 Total Creatine Kinase 71 U/L 137 U/L Troponin I 0.55 NG/ML White Blood Count 4.2 TH/MM3 Red Blood Count 4.85 MIL/MM3 Hemoglobin 13.8 GM/DL Hematocrit 40.8 % Mean Corpuscular Volume 84.1 FL Mean Corpuscular Hemoglobin 28.4 PG Mean Corpuscular Hemoglobin Concent 33.8 % Red Cell Distribution Width 15.0 % Platelet Count 183 TH/MM3 Mean Platelet Volume 8.4 FL Neutrophils (%) (Auto) 65.4 % Lymphocytes (%) (Auto) 23.2 % Monocytes (%) (Auto) 6.7 % Eosinophils (%) (Auto) 4.4 % Basophils (%) (Auto) 0.3 % Neutrophils # (Auto) 2.8 TH/MM3 Lymphocytes # (Auto) 1.0 TH/MM3 Monocytes # (Auto) 0.3 TH/MM3 Eosinophils # (Auto) 0.2 TH/MM3 Basophils # (Auto) 0.0 TH/MM3 CBC Comment DIFF FINAL Differential Comment Blood Urea Nitrogen 21 MG/DL Creatinine 1.25 MG/DL Random Glucose 83 MG/DL Calcium Level 8.7 MG/DL Sodium Level 133 MEQ/L Potassium Level 4.3 MEQ/L Chloride Level 99 MEQ/L Carbon Dioxide Level 24.2 MEQ/L Anion Gap 10 MEQ/L Estimat Glomerular Filtration Rate 61 ML/MIN Triglycerides Level 275 MG/DL Cholesterol Level 146 MG/DL LDL Cholesterol 59 MG/DL HDL Cholesterol 32.4 MG/DL Cholesterol/HDL Ratio 4.50 RATIO Assessment and Plan Problem List: (1) CAD (coronary artery disease) ICD Codes: I25.10 - Atherosclerotic heart disease of [place] coronary artery without angina pectoris (2) HIV positive ICD Codes: Z21 - HIV positive Status: Acute (3) NSTEMI (non-ST elevated myocardial infarction) ICD Codes: I21.4 - Non-ST elevation (NSTEMI) myocardial infarction Status: Acute (4) Hepatitis C ICD Codes: B19.20 - Hepatitis C Status: Acute Assessment and Plan 1.) CAD - assymptomatic pod#1 bms ostial lad, ok to dc from cv standpoint on aspirin 162 mg qd, plavix 75 mg qd, lisinopril and coreg, statin held due to ldl =55; compliance with aspirin and plavix strongly stressed to patient by me due to risk of stent thrombosis with noncompliance, f/u with me 08/21/17; d/w Felipa nurse Aristides Robert MD Aug 17, 2017 10:49
--- NOTE | 2017-08-17 11:21 | EKG ---
Date Performed: 08/17/2017 Time Performed: 06:28:10 PTAGE: 52 years EKG: Sinus rhythm Possible left atrial abnormality LVH with secondary repolarization abnormality Nonspecific ST and T wave abnormalities Abnormal ECG No significant change from prior electrocardiogram. DOCTOR: Heri Valverde Interpretating Date/Time 08/17/2017 11:20:06
[2017-08-17] MEDS ORDERED: ASPI81 PO (11:39)
[2017-08-17] MEDS ORDERED: CARV3.125 PO (11:39)
[2017-08-17] MEDS ORDERED: LISI10TA3 PO (11:39)
[2017-08-17] MEDS ORDERED: Nystatin Liq SWISH-SWAL (11:39)
[2017-08-17] MEDS ORDERED: FURO1TAB62 PO (11:39)
[2017-08-17] MEDS ORDERED: PLAV75TA29 PO (11:39)
[2017-08-17] MEDS ORDERED: POTA10CA PO (11:39)
--- NOTE | 2017-08-17 11:44 | HHI.PR ---
Subjective Remarks Follow-up non-ST elevation [place] 08/16/17-patient seen and examined, still with chest pain along with shortness of breath. Currently nothing by mouth pending left heart catheterization this afternoon. 08/17/17-patient seen and examined, he status post cardiac catheterization with cardiac stent placed 1 to LAD. Currently has no chest pain or shortness of breath. Positive for oral thrush Objective Vitals Vital Signs Date Time Temp Pulse Resp B/P (MAP) Pulse Ox O2 Delivery O2 Flow Rate FiO2 08/17/17 11:31 95 08/17/17 11:31 97.8 95 18 123/77 (92) 97 08/17/17 10:23 91 08/17/17 09:00 91 08/17/17 08:45 94 08/17/17 08:45 97.8 102 18 134/93 (107) 95 08/17/17 06:33 88 08/17/17 05:11 98.0 97 16 128/77 (94) 100 08/17/17 05:10 88 08/17/17 04:54 86 08/17/17 04:00 86 08/17/17 03:00 86 08/17/17 02:00 86 08/17/17 01:10 94 08/17/17 00:00 88 08/16/17 23:39 95 21 08/16/17 23:32 98.7 98 18 139/78 (98) 98 08/16/17 23:30 102 08/16/17 22:00 93 08/16/17 21:23 98.7 90 20 128/87 (101) 98 08/16/17 21:00 91 08/16/17 20:00 95 08/16/17 19:46 18 08/16/17 19:00 100 08/16/17 18:02 86 08/16/17 17:23 88 08/16/17 16:37 92 08/16/17 15:45 92 08/16/17 15:45 98.2 84 16 136/85 (102) 99 08/16/17 14:21 98 Room Air I/O 08/16/17 08/16/17 08/16/17 08/17/17 08/17/17 08/17/17 07:00 15:00 23:00 07:00 15:00 23:00 Intake Total 480 ml 240 ml 22 ml Output Total 1400 ml 1450 ml 1550 ml Balance -1400 ml -970 ml -1310 ml 22 ml Intake Oral 480 ml 240 ml IV Total 22 ml Output Urine Total 1400 ml 1450 ml 1550 ml # Voids 5 # Bowel Movements 0 Result Diagram: 08/17/17 0441 08/17/17 0441 Imaging Last Impressions Chest X-Ray 08/15/172207 Signed Impressions: Service Date/Time: Tuesday, August 15, 2017 22:21 - CONCLUSION: Mild cardiomegaly without pulmonary vascular engorgement. Bud Tolentino Jr., MD Objective Remarks GENERAL: NAD SKIN: Warm and dry. HEAD: Normocephalic. EYES: No scleral icterus. No injection or drainage. NECK: Supple, trachea midline. No JVD or lymphadenopathy. Mouth: + oral thrush CARDIOVASCULAR: Regular rate and rhythm without murmurs, gallops, or rubs. RESPIRATORY: Breath sounds equal bilaterally. No accessory muscle use. GASTROINTESTINAL: Abdomen soft, non-tender, nondistended. MUSCULOSKELETAL: No cyanosis, or edema. BACK: Nontender without obvious deformity. No CVA tenderness. Procedures [facility] with cardiac stent x 1 to LAD 08/16/17 A/P Problem List: (1) NSTEMI (non-ST elevated myocardial infarction) ICD Code: I21.4 - Non-ST elevation (NSTEMI) myocardial infarction Status: Acute (2) Hypertension ICD Code: I10 - Hypertension Status: Chronic (3) CHF (congestive heart failure) ICD Code: I50.9 - Heart failure, unspecified Assessment and Plan 52-year-old man with NSTEMI EKG reviewed and shows sinus tachycardia, no ST elevation -s/p [facility] with cardiac stent x 1 to LAD 08/16/17 -Appreciate input from cardiology -Currently on Coreg, aspirin, Plavix and lisinopril -Secondary to LDH of 52, statin not indicated Questionable CHF, new onset, patient with orthopnea and crackles in left lung base -Resolved HTN, chronic, currently uncontrolled -Continue home lisinopril, adjust as needed -monitor vitals DVT prophylaxis: Heparin Problem Qualifiers (1) CHF (congestive heart failure): Qualified Codes: I50.9 - Heart failure, unspecified Dominick Oconnor MD Aug 17, 2017 11:44
[2017-08-17] MEDS ORDERED: ASPI-516 CHEW (11:45)
--- NOTE | 2017-08-17 11:51 | HHI.DS ---
Discharge Summary Admission Date Aug 15, 2017 at 23:55 Discharge Date: Aug 17, 2017 Admitting Diagnosis non stemi (1) NSTEMI (non-ST elevated myocardial infarction) ICD Code: I21.4 - Non-ST elevation (NSTEMI) myocardial infarction Status: Acute (2) Hypertension ICD Code: I10 - Hypertension Status: Chronic (3) CHF (congestive heart failure) ICD Code: I50.9 - Heart failure, unspecified Procedures [facility] with cardiac stent x 1 to LAD 08/16/17 Brief History - From Admission 52-year-old male with a history of hypertension, HIV, and hep C presented to the ED with a 2 week long history of chest pain. He describes the chest pain as pressure-like, intermittent 10 /10, worse with exertion with associated shortness of breath. Patient states he notices when he does heavy lifting at work and he overexerts himself he begins to have chest pain that radiates to his left arm and he begins to have shortness of breath, he also experiences shortness of breath at night when laying flat. He has been out of his blood pressure medicines for the past 2 days with states his blood pressure has not been well controlled. He has not been able to get into see his primary care physician. He denies any recent fever, chills, or headaches. CBC/BMP: 08/17/17 0441 08/17/17 0441 Significant Findings Laboratory Tests Test 08/15/17 22:10 08/15/17 22:33 08/16/17 04:45 08/16/17 06:10 White Blood Count 3.7 TH/MM3 (4.0-11.0) 2.4 TH/MM3 (4.0-11.0) Eosinophils (%) (Auto) 4.3 % (0.0-4.0) 6.0 % (0.0-4.0) Prothrombin Time 9.6 SEC (9.8-11.6) Blood Urea Nitrogen 22 MG/DL (7-18) 20 MG/DL (7-18) Random Glucose 112 MG/DL (74-106) Calcium Level 7.9 MG/DL (8.5-10.1) 8.4 MG/DL (8.5-10.1) Estimat Glomerular Filtration Rate 62 ML/MIN (>89) 75 ML/MIN (>89) Creatine Kinase MB 4.9 NG/ML (0.5-3.6) Troponin I 0.42 NG/ML (0.02-0.05) 0.68 NG/ML (0.02-0.05) B-Type Natriuretic Peptide 986 PG/ML (0-100) Urine Protein 30 mg/dL (NEG-TRACE) Urine Mucus FEW /lpf (OCC) Red Blood Count 4.28 MIL/MM3 (4.50-5.90) Hemoglobin 12.3 GM/DL (13.0-17.0) Hematocrit 36.0 % (39.0-51.0) Monocytes (%) (Auto) 9.4 % (0.0-8.0) Neutrophils # (Auto) 1.1 TH/MM3 (1.8-7.7) Lymphocytes # (Auto) 0.9 TH/MM3 (1.0-4.8) Test 08/16/17 11:44 08/17/17 04:41 Troponin I 0.55 NG/ML (0.02-0.05) Eosinophils (%) (Auto) 4.4 % (0.0-4.0) Blood Urea Nitrogen 21 MG/DL (7-18) Sodium Level 133 MEQ/L (136-145) Estimat Glomerular Filtration Rate 61 ML/MIN (>89) Triglycerides Level 275 MG/DL (42-150) HDL Cholesterol 32.4 MG/DL (40.0-60.0) Imaging Last Impressions Chest X-Ray 08/15/172207 Signed Impressions: Service Date/Time: Tuesday, August 15, 2017 22:21 - CONCLUSION: Mild cardiomegaly without pulmonary vascular engorgement. Bud Tolentino Jr., MD PE at Discharge GENERAL: NAD SKIN: Warm and dry. HEAD: Normocephalic. EYES: No scleral icterus. No injection or drainage. NECK: Supple, trachea midline. No JVD or lymphadenopathy. Mouth: + oral thrush CARDIOVASCULAR: Regular rate and rhythm without murmurs, gallops, or rubs. RESPIRATORY: Breath sounds equal bilaterally. No accessory muscle use. GASTROINTESTINAL: Abdomen soft, non-tender, nondistended. MUSCULOSKELETAL: No cyanosis, or edema. BACK: Nontender without obvious deformity. No CVA tenderness. Hospital Course Patient admitted secondary to non-ST elevation [place] for which cardiology was consulted and patient initially placed on a heparin drip. He was taken to cardiac laboratory assistant for left heart catheterization and underwent stenting of LAD 1. Patient was treated with aspirin, that I neftali, Plavix and continued on lisinopril. Secondary to low LDH no statin was started. Patient conditions improved and vitals remained stable prior to discharge. Pt Condition on Discharge: Good Discharge Disposition: Discharge Home Discharge Time: <= 30 minutes Discharge Instructions DIET: Follow Instructions for: Heart Healthy Diet Activities you can perform: Regular-No Restrictions Follow up Referrals: Cardiology - 3-5 Days PCP Follow-up - 1 Week New Medications: Aspirin (Aspirin) 81 Mg Chew 162 MG CHEW DAILY for Prevent Blood Clot, #30 TAB 3 Refills Carvedilol (Coreg) 3.125 Mg Tab 3.125 MG PO Q12HR for Blood Pressure Management, #60 TAB 3 Refills Clopidogrel (Plavix) 75 Mg Tab 75 MG PO DAILY for Prevent Blood Clot, #30 TAB 3 Refills Lisinopril (Lisinopril) 10 Mg Tab 10 MG PO DAILY for Blood Pressure Management, #30 TAB 3 Refills [Nystatin Liq] () 5 ML SUSP 5 ML SWISH-SWAL QID for 10 Days Discontinued Medications: Lisinopril (Lisinopril) 10 Mg Tab 10 MG PO DAILY, #30 TAB 0 Refills Dominick Oconnor MD Aug 17, 2017 11:51
[2017-08-17] MEDS ORDERED: IOHEXOL 350 MG/ML 100 ML BTL (for Cath Lab) OTHER ONE (12:54)
[2017-08-17] MEDS ORDERED: NYSTATIN SUSP 500,000 U/5 ML CUP SWISH-SWAL SCH (13:00)
--- NOTE | 2017-08-17 19:28 | ECHRPT ---
Indication: CHEST PAIN CONCLUSIONS Mildly dilated left ventricle. Mild concentric left ventricular hypertrophy. The left ventricular systolic function is severely reduced with an estimated ejection fraction in th e range of 25-30%. Global hypokinesis. Normal right ventricular size though probably with moderately redcued systolic function. No valvular abnormalities. BP: 118 / 79 HR: 77 Rhythm: MEASUREMENTS (Male / Female) Normal Values Technical Quality:Good 2D ECHO LV Diastolic Diameter PLAX 5.3 cm 4.2 - 5.9 / 3.9 - 5.3 cm LV Systolic Diameter PLAX 4.6 cm IVS Diastolic Thickness 1.5 cm 0.6 - 1.0 / 0.6 - 0.9 cm LVPW Diastolic Thickness 0.9 cm 0.6 - 1.0 / 0.6 - 0.9 cm LV Relative Wall Thickness 0.4 RV Internal Dim ED PLAX 2.5 cm LA Systolic Diameter LX 3.8 cm 3.0 - 4.0 / 2.7 - 3.8 cm M-MODE Aortic Root Diameter MM 3.3 cm AV Cusp Separation MM 2.0 cm DOPPLER Mitral E Point Velocity 47.8 cm/s Mitral A Point Velocity 41.3 cm/s Mitral E to A Ratio 1.2 TR Peak Velocity 134.0 cm/s TR Peak Gradient 7.2 mmHg Right Atrial Pressure 10.0 mmHg Pulmonary Artery Systolic Pressu 17.2 mmHg Right Ventricular Systolic Press 17.2 mmHg FINDINGS LEFT VENTRICLE Mildly dilated left ventricle. Mild concentric left ventricular hypertrophy. The left ventricular systolic function is severely reduced with an estimated ejection fraction in th e range of 25-30%. Global hypokinesis. RIGHT VENTRICLE Normal right ventricular size though probably with moderately redcued systolic function. LEFT ATRIUM The left atrial size is normal. RIGHT ATRIUM The right atrial size is normal. ATRIAL SEPTUM Normal atrial septal thickness without atrial level shunting by limited color doppler interrogation. AORTA The aortic root and proximal ascending aorta are normal in size on limited imaging. MITRAL VALVE Structurally normal mitral valve. No mitral valve stenosis or regurgitation. AORTIC VALVE Trileaflet aortic valve. No aortic valve stenosis or regurgitation. TRICUSPID VALVE Structurally normal tricuspid valve. No tricuspid valve stenosis or regurgitation. PULMONARY VALVE Trivial pulmonary valve regurgitation. VESSELS The inferior vena cava is normal in size. PERICARDIUM No pericardial effusion. Salinas Patton MD (Electronically Signed) Final Date:17 August 2017 19:27
--- NOTE | 2017-08-18 13:58 | MA ---
cc: ANJU SEWELL M.D. DATE: 08/16/2017. PROCEDURE PERFORMED: Left heart catheterization, left ventriculography, coronary angiography, direct percutaneous coronary intervention with bare-metal stent of the ostial proximal left anterior descending. INDICATIONS FOR THE PROCEDURE: NSTEMI, coronary artery disease. DESCRIPTION OF THE PROCEDURE IN DETAIL: The patient was brought to the cardiac catheterization laboratory in a fasting state. usual fashion. 50 cc of 1% lidocaine was used to locally anesthetize the right common femoral artery. A 4-Vietnamese sheath was placed in the right common femoral artery. 4-Vietnamese JL4 and JR4 catheters were used to perform left and right coronary angiography and left ventriculography. FINDINGS: LV pressure is 130/10-12. Ejection fraction is 50%. The anterior wall is mildly hypokinetic. The right coronary artery is dominant. It has a long complex plaque in the proximal segment with a maximal stenosis of 60% to perhaps 70%. Mild diffuse disease in the mid to distal segment up to 20% angiographically. Ostial right posterior descending artery has a 60% stenosis. The right NEELAM is a relatively small vessel, reference vessel diameter probably 2.0 to 2.25 mm in diameter. The ostial proximal segment has a 50% to 60% stenosis. The left main coronary artery has no significant disease angiographically. The left anterior descending is fibrocalcific fluoroscopically in the ostial proximal segment with an ostial proximal 95% stenosis. The mid left anterior descending has a long 60% stenosis at a bifurcation with a medium-sized diagonal vessel which has a 30 degree angulation off the left anterior descending. The left anterior descending is transapical. The ostial first diagonal artery has a 60% to 70% stenosis. There is a medium to large size ramus intermedius vessel with an ostial 90% stenosis. It has a 45-degree angulation off the left circumflex. The first obtuse marginal branch vessel is a medium size vessel, reference vessel diameter of 2.75 mm in diameter with a proximal 50% to 60% stenosis. The left circumflex vessel in the mid AV groove has a long 60% to 70% stenosis. It does supply a medium sized distal posterolateral artery which is probably 3.0 mm in diameter for reference vessel diameter. Also note the ramus intermedius vessel has a mid 50% stenosis. DISCUSSION: The culprit lesion is probably the ostial left anterior descending versus possibly the ramus intermedius vessel. Otherwise, the patient has moderate to severe three-vessel coronary artery disease; however, does not meet angiographic criteria for revascularization other than the ramus intermedius vessel. The ostial left anterior descending is based on its location is the only life-threatening stenosis; and I have talked in detail about the case with Dr. Robyn Lamas given the patient's HIV and hepatitis C status, we thought it was reasonable to attempt percutaneous coronary intervention of the ostial left anterior descending and then assess the patient's clinical status after that. The patient continues to have moderate to severe symptoms and certainly could consider a CABG. Therefore, a 4-Vietnamese sheath was exchanged for a 6-Vietnamese sheath, was given. First ACT post heparin and bolus was 2.2. An additional 1000 units of heparin was given. Final ACT pending at the time of dictation. 6-Vietnamese XB 3.5 guide 0.014 Prowater guidewire and a 309 Integrity stent were used to directly stent the ostial proximal left anterior descending, one inflation, 11 atmospheres for 20 seconds. The stenosis went from 95% to 0% with ALEC III flow. There was no compromise in the ostium of the ramus intermedius vessel. CONCLUSIONS: 1. NSTEMI, culprit 95% ostial proximal left anterior descending as detailed above. 2. 90% ostial proximal medium ramus intermedius vessel as detailed above. Otherwise, moderate three-vessel coronary artery disease in a right dominant system as detailed above. 3. Preserved left ventricular systolic function of 50%. 4. Successful percutaneous coronary intervention with bare-metal stent of the ostial proximal left anterior descending from 95% to 0% with ALEC III flow. 5. Recommend Aggrastat drip per protocol, aspirin 162 milligrams daily, Plavix milligrams p.o. load and then 75 milligrams a day for twelve to fifteen months. 6. The patient has a history of hepatitis C and will need to check his liver function tests to determine the risks and benefits of starting statin therapy. MD LISSETTE Griggs/CHONG /1:37 PM /1:16 PM
== END 2017-08-17 12:55 | disposition home or self-care (01) | DRG 249 ==
LOC: NEPC 21:50 → NEDA 23:55 → NEDH 08-16 03:55 → NEDA 08-16 04:20 → HIMN 08-16 04:20 → HCIS 08-16 14:53
PROVIDERS: ADMIT Hospitalist; ATTEND Hospitalist
PROC: 4A023N7 Measurement of Cardiac Sampling and Pressure, Left Heart, Percutaneous Approach (ICD-10-PCS; 2017-08-16)
PROC: B2111ZZ Fluoroscopy of Multiple Coronary Arteries using Low Osmolar Contrast (ICD-10-PCS; 2017-08-16)
PROC: B2151ZZ Fluoroscopy of Left Heart using Low Osmolar Contrast (ICD-10-PCS; 2017-08-16)
PROC: 02703DZ Dilation of Coronary Artery, One Artery with Intraluminal Device, Percutaneous Approach (ICD-10-PCS; principal; 2017-08-16 12:30)
DX: I21.4 Non-ST elevation (NSTEMI) myocardial infarction (principal); B37.0 Candidal stomatitis; D70.9 Neutropenia, unspecified; I11.0 Hypertensive heart disease with heart failure; I50.9 Heart failure, unspecified; I25.119 Atherosclerotic heart disease of native coronary artery with unspecified angina pectoris; Z21 Asymptomatic human immunodeficiency virus [HIV] infection status; E78.5 Hyperlipidemia, unspecified; B19.20 Unspecified viral hepatitis C without hepatic coma; F32.9 Major depressive disorder, single episode, unspecified; F17.210 Nicotine dependence, cigarettes, uncomplicated; F12.10 Cannabis abuse, uncomplicated; Z83.3 Family history of diabetes mellitus; Z82.49 Family history of ischemic heart disease and other diseases of the circulatory system; D64.9 Anemia, unspecified; Z82.3 Family history of stroke
CPT/HCPCS: 71046; 80048; 80053; 80061; 81001; 82550; 82552; 83690; 83735; 83880; 84443; 84484; 85002; 85025; 85610; 85730; 87641; 92928; 93005; 93306; 93458; 94640; 94664; 96374; 96375; C1769; C1876; C1887; C1893; C9113; J1644; J1940; J2250; J2270; J3010; J3246; J7644; Q9967

== ENCOUNTER 2018-03-24 00:07 | Observation (INO) ==
[2018-03-24 00:52] VITALS: RESP 16
[2018-03-24 01:22] LABS: Prothrombin Time 9.9 sec (9.8-11.6)
[2018-03-24 01:23] LABS: Activated Partial Thrombo Time 25.7 sec (24.3-30.1)
[2018-03-24 01:25] LABS: D-Dimer 0.69 mg/L FEU (0.00-0.50)
--- NOTE | 2018-03-24 01:33 | XR ---
EXAM DATE: 03/24/2018 12:56 AM EDT AGE/SEX: 52 years / Male INDICATIONS: Chest pain today. CLINICAL DATA: This is the patient's initial encounter. Patient reports that signs and symptoms have been present for 1 day and indicates a pain score of 3/10. MEDICAL/SURGICAL HISTORY: Congestive heart failure. Hypertension. None. COMPARISON: [facility] – [place], CHEST PA & LAT, 08/15/2017. . FINDINGS: A single AP view of the chest demonstrates the lungs to be symmetrically aerated with minimal atelect asis/scarring laterally in the left base. No mass, infiltrate or effusion. The cardiomediastinal con tours are unremarkable. Osseous structures are intact. CONCLUSION: No acute cardiopulmonary process. Electronically signed by: Stanton Hendricks MD 03/24/2018 1:31 AM EDT
--- NOTE | 2018-03-24 01:56 | ED ---
HPI General Chief Complaint: Chest Pain Stated Complaint: cardiac Time Seen by Provider: 03/24/18 01:52 Source: patient Mode of arrival: ambulatory Limitations: no limitations History of Present Illness HPI narrative: 52-year-old male presents to the emergency department by private transportation for complaint of 1 day of chest pain right-sided radiating to the right upper extremity with symptoms worsening over the past 3 hours. Patient reports history of hypertension atrial fibrillation and CAD with previous stent placed July 2017. Patient states he has been out of his medications. Patient states he is also had swelling of his lower extremities. Patient rates his discomfort as moderate. Patient's had diaphoresis and shortness of breath. Patient feels improved resting supine. Patient is taken no medications prior to arrival to the emergency department. Patient is unable to identify exacerbating factors but does note that laying supine alleviates chest pressure and shortness of breath. No recent long distance travel protracted bedrest or surgical procedure. No fever chills. MD complaint: chest pain Complete Quality Measures for STEMI Alert Patients STEMI Alert: No Onset (ago): hour(s) Duration: constant Onset: during exertion Pain location: substernal and right chest Severity: moderate Quality: tightness and heaviness Pain radiation: none Relieving factors: rest Exacerbating factors: exertion Associated symptoms: nausea and diaphoresis Treatments prior to arrival chest pain: none Related Data Home Medications Medication Instructions Recorded Confirmed furosemide [Lasix] 20 mg PO DAILY 03/24/18 03/24/18 lisinopril 10 mg PO DAILY 03/24/18 03/24/18 Allergies Allergy/AdvReac Type Severity Reaction Status Date / Time No Known Allergies Allergy Verified 03/24/18 00:11 Review of Systems ROS: all other systems reviewed are negative PMFSH Medical History Medical History CHF (congestive heart failure) (Acute) Surgical History Surgical History H/O heart artery stent (Acute) Social History Social History Substance History: No History of Abuse Smoking Status: Current every day smoker Tobacco Type: Cigarettes How Often Do You Have a Drink Containing Alcohol: Monthly or less Recent Travel in [facility] within the Last 8 Weeks: No Recent Out of Country Travel within the Last 8 Weeks: No Immunization History Tetanus Immunization: <5 Years Exam Narrative Exam Narrative: GENERAL: Well-nourished, well-developed patient. SKIN: Focused skin assessment warm/dry. HEAD: Normocephalic. EYES: No scleral icterus. No injection or drainage. NECK: Supple, trachea midline. No JVD or lymphadenopathy. CARDIOVASCULAR: Regular rate and rhythm without murmurs, gallops, or rubs. RESPIRATORY: Breath sounds equal bilaterally. No accessory muscle use. GASTROINTESTINAL: Abdomen soft, non-tender, nondistended. MUSCULOSKELETAL: No cyanosis, or edema. BACK: Nontender without obvious deformity. No CVA tenderness. Course Initial Documented Vital Signs Temperature 98.5 F 03/24/18 00:08 Pulse Rate 102 H 03/24/18 00:08 Respiratory Rate 20 03/24/18 00:08 Blood Pressure 177/119 H 03/24/18 00:08 Pulse Oximetry 97 03/24/18 00:08 Last Documented Vital Signs Temperature 98.5 F 03/24/18 00:08 Pulse Rate 100 H 03/24/18 00:51 Respiratory Rate 16 03/24/18 00:51 Blood Pressure 134/75 03/24/18 00:51 Pulse Oximetry 98 03/24/18 00:51 Medical Decision Making [facility] Narrative Medical decision making narrative: 52-year-old male with known history of coronary vessel disease hypertension CHF presents to the emergency department reporting noncompliance with lisinopril and Lasix. Chest discomfort for the past day worsening over the past 3 hours radiates to the right upper extremity. Patient denies taking new medications prior to arrival to the emergency department. Patient placed on phototypesetting equipment monitor with continuous pulse oximetry IV access obtained specimens collected and sent for resulting EKG is sinus rhythm with no acute ST elevation prominent T waves Chest x-ray no acute process BNP 135 troponin I 0.03 CK 97 BMP grossly normal limits magnesium 2 d-dimer mildly elevated but no pleuritic component and patient states symptoms remind him of his previous cardiac event and anginal in nature responding to sublingual nitroglycerin and Nitropaste CBC is automated differential mild leukopenia otherwise stable hemoglobin hematocrit platelet count Patient resting comfortably at 3 hours additional troponin I performed a 0.04 therefore placed in chest pain center per protocol as may need stress testing Medical Screen Exam Complete: Yes Emergency Medical Condition: Yes Differential Diagnosis Differential Diagnosis: Chest pain, atypical chest pain, ACS, NC, CHF, PE, pneumonia, anemia, arrhythmia, electrolyte disturbance Lab Data Lab results reviewed: Yes I reviewed the patient's lab results. Result diagrams: 03/24/18 00:46 08/26/18 00:46 Lab Results 03/24/18 03/24/18 03/24/18 Range/Units 00:46 00:46 00:46 WBC 3.9 L (4.0-11.0) th/mm3 RBC 4.62 (4.50-5.90) mil/mm3 Hgb 13.7 (13.0-17.0) gm/dL Hct 39.5 (39.0-51.0) % MCV 85.6 (80.0-100.0) fL MCH 29.6 (27.0-34.0) pg MCHC 34.6 (32.0-36.0) % RDW 14.6 (11.6-17.2) % Plt Count 165 (150-450) th/mm3 MPV 8.4 (7.0-11.0) fL Neut % (Auto) 67.7 (16.0-70.0) % Lymph % (Auto) 22.3 (9.0-44.0) % [place] % (Auto) 6.4 (0.0-8.0) % Eos % (Auto) 2.7 (0.0-4.0) % Baso % (Auto) 0.9 (0.0-2.0) % Neut # (Auto) 2.7 (1.8-7.7) th/mm3 Lymph # (Auto) 0.9 L (1.0-4.8) th/mm3 [place] # (Auto) 0.3 (0.0-0.9) th/mm3 Eos # (Auto) 0.1 (0.0-0.4) th/mm3 Baso # (Auto) 0.0 (0.0-0.2) th/mm3 WBC Differential . Differential Comment Auto diff final PT 9.9 (9.8-11.6) sec INR 1.0 Ratio APTT 25.7 (24.3-30.1) sec D-Dimer Quant (PE/DVT) 0.69 H (0.00-0.50) mg/L FEU Sodium 136 (136-145) meq/L Potassium 4.1 (3.5-5.1) meq/L Chloride 100 (98-107) meq/L Carbon Dioxide 28.0 (21.0-32.0) meq/L Anion Gap 8 (5-15) meq/L BUN 18 (7-18) mg/dL Creatinine 1.11 (0.60-1.30) mg/dL Estimated GFR 70 L (>89) mL/min Random Glucose 96 (74-106) mg/dL Calcium 8.9 (8.5-10.1) mg/dL Magnesium 2.0 (1.5-2.5) mg/dL Total Creatine Kinase 97 (39-308) U/L Troponin I 0.03 (0.02-0.05) ng/mL B-Natriuretic Peptide (0-100) pg/mL 03/24/18 03/24/18 Range/Units 00:46 03:50 WBC (4.0-11.0) th/mm3 RBC (4.50-5.90) mil/mm3 Hgb (13.0-17.0) gm/dL Hct (39.0-51.0) % MCV (80.0-100.0) fL MCH (27.0-34.0) pg MCHC (32.0-36.0) % RDW (11.6-17.2) % Plt Count (150-450) th/mm3 MPV (7.0-11.0) fL Neut % (Auto) (16.0-70.0) % Lymph % (Auto) (9.0-44.0) % [place] % (Auto) (0.0-8.0) % Eos % (Auto) (0.0-4.0) % Baso % (Auto) (0.0-2.0) % Neut # (Auto) (1.8-7.7) th/mm3 Lymph # (Auto) (1.0-4.8) th/mm3 [place] # (Auto) (0.0-0.9) th/mm3 Eos # (Auto) (0.0-0.4) th/mm3 Baso # (Auto) (0.0-0.2) th/mm3 WBC Differential Differential Comment PT (9.8-11.6) sec INR Ratio APTT (24.3-30.1) sec D-Dimer Quant (PE/DVT) (0.00-0.50) mg/L FEU Sodium (136-145) meq/L Potassium (3.5-5.1) meq/L Chloride (98-107) meq/L Carbon Dioxide (21.0-32.0) meq/L Anion Gap (5-15) meq/L BUN (7-18) mg/dL Creatinine (0.60-1.30) mg/dL Estimated GFR (>89) mL/min Random Glucose (74-106) mg/dL Calcium (8.5-10.1) mg/dL Magnesium (1.5-2.5) mg/dL Total Creatine Kinase (39-308) U/L Troponin I 0.04 (0.02-0.05) ng/mL B-Natriuretic Peptide 135 H (0-100) pg/mL Imaging Data Radiologist's impression: Chest X-Ray 03/24/18 00:35 CONCLUSION: No acute cardiopulmonary process. ECG Data EKG Prior to Arrival: No Attestation: I personally reviewed and interpreted this ECG as follows: Prior ECG tracings: not available for review Interpretation: EKG sinus tachycardia rate [address] elevation or injury pattern change noted Discharge Plan Discharge Disposition Patient Disposition: 30 Still Patient Discharge Condition Condition: Stable Discharge Details Diagnosis: Chest pain Physicians Team ED Provider: Lynette Sanchez Primary Care Provider: Primary Care Rebeca Velázquez Attending Provider: Jostin Mane Status ED Status: Admitted Observation Patient
[2018-03-24 02:04] LABS: Potassium 4.1 meq/L (3.5-5.1)
[2018-03-24 02:05] LABS: Calcium 8.9 mg/dL (8.5-10.1); Troponin I 0.03 ng/mL (0.02-0.05)
[2018-03-24] MEDS ORDERED: Acetaminophen 325 MG Tablet PO ONE (03:23)
[2018-03-24] MEDS ORDERED: Morphine Inj 4 MG/ML Vial IV.PUSH ONE (03:23)
[2018-03-24 03:46] LABS: Baso % (Auto) 0.9 % (0.0-2.0); Eos # (Auto) 0.1 th/mm3 (0.0-0.4); Eos % (Auto) 2.7 % (0.0-4.0); Hematocrit 39.5 % (39.0-51.0); Hemoglobin 13.7 gm/dL (13.0-17.0); Lymph # (Auto) 0.9 th/mm3 (1.0-4.8); Lymph % (Auto) 22.3 % (9.0-44.0); Mean Corpuscular HGB Conc 34.6 % (32.0-36.0); Mean Corpuscular Hemoglobin 29.6 pg (27.0-34.0); Mean Corpuscular Volume 85.6 fL (80.0-100.0); Mean Platelet Volume 8.4 fL (7.0-11.0); Mono # (Auto) 0.3 th/mm3 (0.0-0.9); Mono % (Auto) 6.4 % (0.0-8.0); Neut # (Auto) 2.7 th/mm3 (1.8-7.7); Neut % (Auto) 67.7 % (16.0-70.0); Platelet Count 165 th/mm3 (150-450); Red Blood Count 4.62 mil/mm3 (4.50-5.90); Red Cell Distribution Width 14.6 % (11.6-17.2); White Blood Count 3.9 th/mm3 (4.0-11.0)
[2018-03-24 07:37] LABS: Troponin I 0.03 ng/mL (0.02-0.05)
--- NOTE | 2018-03-24 09:35 | P.HPCA ---
History of Present Illness Primary Care Physician: No Primary Care Physician Chief Complaint: Chest pain, dyspnea, headache, leg pain, medication refill History of Present Illness: 52-year-old male with history of coronary artery disease, 1 cardiac stent, excisional A. fib, hypertension, congestive heart failure, HIV positive, and hepatitis C presents emergency room for further evaluation of multiple complaints. Onset 1.5 weeks ago. Reports increasing dyspnea, generalized chest pressure, right side chest pain worse than left, headache described as "pressure in my head," and left leg pain which he states is chronic 3 years however worse past week. Ran out of medications approximately 2 weeks ago. Reports taking lisinopril, "another bp medication, baby aspirin, and a "blood thinner." Not taking a statin, tells me "they took me off but I don't know why. " Chest pressure is been constant. Last evening associated symptoms included nausea and diaphoresis. Currently chest pain rated at 4/10. Headache generalized, characterized as pressure. No vision change, not described as worse headache ever. In regards to left leg pain, this has been chronic for at least 3 years and endorses being told to see a vein specialist which he never followed up with. Recently lost insurance and has applied for [facility] clinic and has been accepted although does not have a recent appointment. Continues to smoke. When questioned about HIV and hepatitis history denies history of HIV, stating "my numbers are fine and I do not have HIV or hepatitis C." Has not previously attempted further work up to determine if he is a candidate for curative hepatitis C medication. Family history noncontributory for early onset cardiovascular disease. Continues to smoke. Works as a master chef part-time. Requesting assistance with disability paperwork. No recent illness, injury, fever, or trauma. Past cardiac testing 08/16/2017 cardiac catheterization (Dr. Robert) Discussion: The culprit lesion is probably the ostial left anterior descending versus probably the ramus intermedius vessel. Otherwise, the patient has moderate to severe three-vessel coronary artery disease; however, did not meet angiographic criteria for revascularization other than the rhombus intermedius vessel. Ostial left anterior descending is based on its location is only life-threatening stenosis; and I have talked in detail about the case with Dr. Cary Solis given the patient's HIV and hepatitis C status, we thought it was reasonable to attempt percutaneous coronary intervention of the ostial left anterior descending and then assess the patient's clinical status after that. The patient continues to have moderate to severe symptoms certainly would consider a CABG. Conclusions: 1. NSTEMI, culprit 95% ostial proximal left anterior descending as detailed above. 2. 90% ostial proximal medium rhombus intermedius vessel as detailed above. Otherwise, moderate three-vessel coronary artery disease and right dominant system as detailed above. 3. Preserved left ventricular systolic function of 50%. 4. Successful percutaneous coronary intervention with bare-metal stent of the ostial proximal left anterior descending from 95% to 0% with ALEC III flow. 5. Recommend Aggrastat drip per protocol, aspirin 162 mg daily, Lasix 75 mg a day for 12-15 months. 6. Patient has history of hepatitis C will need to check his liver function to determine the risk and benefits of taking statin therapy. - Diagnosis (1) Atypical chest pain (2) History of coronary artery disease (3) History of hypertension (4) HIV antibody positive (5) Hepatitis C (6) Tobacco abuse Review of Systems All other systems reviewed negative except as stated in [facility] - History History Provided By: Patient - Medical History Medical History: Medical History (Last Updated 03/24/18 @ 10:22 by ASHLEE Gardner) CHF (congestive heart failure) Coronary artery disease HIV positive Hepatitis C Hypertension Paroxysmal atrial fibrillation - Surgical History Surgical History: Surgical History (Last Updated 03/24/18 @ 10:21 by ASHLEE Gardner) H/O heart artery stent H/O inguinal hernia repair History of nasal surgery - Family History Family History: Family History (Last Updated 03/24/18 @ 10:23 by ASHLEE Gardner) Mother CVA (cerebral vascular accident) COPD (chronic obstructive pulmonary disease) - Tobacco History Tobacco Use In Past 30 Days: Yes Smoking Status: Current every day smoker Tobacco Type: Cigarettes Cigarettes Per Day: 4 - Alcohol History How Often Do You Have a Drink Containing Alcohol: Monthly or less - Substance Use History Substance History: No History of Abuse - Travel History Recent Travel in the [place] Within the Last 8 Weeks: No Recent Travel Out of the Country Within the Last 8 Weeks: No - Immunization History Tetanus Immunization: <5 Years Medications and Allergies Active Medications: Active Medications Nitroglycerin (Nitrostat Sl) 0.4 mg SL Q5M PRN PRN Reason: CHEST PAIN Last Admin: 03/24/18 01:37 Dose: 0.4 mg Sodium Chloride (Ns Flush) 2 ml IV.FLUSH UNSCH PRN PRN Reason: FLUSH AFTER USING IV ACCESS Sodium Chloride (Ns Flush) 2 ml IV.FLUSH BID TIGIST Last Admin: 03/24/18 08:57 Dose: 2 ml Sodium Chloride (Ns Flush) 2 ml IV.FLUSH PRN PRN PRN Reason: FLUSH AFTER USING IV ACCESS Allergies Allergy/AdvReac Type Severity Reaction Status Date / Time No Known Allergies Allergy Verified 03/24/18 00:11 Home Medications Medication Instructions Recorded Confirmed Type furosemide [Lasix] 20 mg PO DAILY 03/24/18 03/24/18 History lisinopril 10 mg PO DAILY 03/24/18 03/24/18 History Exam Vital signs: Vital Signs 03/24/18 00:08 03/24/18 00:35 03/24/18 00:50 Temperature 98.5 F Pulse Rate 102 H Respiratory Rate 20 Blood Pressure 177/119 H Blood Pressure [Left Arm] 151/76 H Blood Pressure [Right Arm] 158/85 H Pulse Oximetry 97 98 03/24/18 00:51 03/24/18 07:00 03/24/18 08:55 Temperature Pulse Rate 100 H 78 76 Respiratory Rate 16 14 16 Blood Pressure 134/75 152/82 H 139/82 Blood Pressure [Left Arm] Blood Pressure [Right Arm] Pulse Oximetry 98 97 Intake & Output 03/23/18 03/24/18 03/24/18 18:59 06:59 18:59 Weight 92.986 kg Narrative: GENERAL: Alert WN, WD, NAD, male HEAD: NC, AT NECK: Supple, no masses, trachea midline CV: RRR, without murmur, rub, gallop, no JVD. No carotid bruits. Chest wall nontender to palpation. RESP: Diminished lungs throughout bilateral, no crackles, wheeze, rhonchi, symmetrical chest rise, nonlabored, able to speak in full sentences ABD: Soft, NT, ND, no masses, positive bowel tones EXT: Pulses +2 right DP, PP, +1 left DP, PP, no pitting edema, left lower extremity large amount of varicosities, discoloration left lower extremity MS: Normal tone x4 extremities, nontender, no obvious deformities, full range of motion NEURO: CN II through CN XII grossly intact, motor strength 5/5 PSYCH: A+O x3, appropriate speech, mood, questionable insight and judgment, somewhat of a poor historian, made multiple jokes during interview requiring redirection. SKIN: Normal turgor, normal texture, no lesions, no rashes, brisk cap refill, even hair distribution, multiple tattoos Results 03/24/18 00:46 03/24/18 00:46 Cardiac Enzymes 03/24/18 03/24/18 03/24/18 Range/Units 00:46 00:46 03:50 Troponin I 0.03 0.04 (0.02-0.05) ng/mL B-Natriuretic Peptide 135 H (0-100) pg/mL 03/24/18 Range/Units 06:50 Troponin I 0.03 (0.02-0.05) ng/mL B-Natriuretic Peptide (0-100) pg/mL Coagulation 03/24/18 03/24/18 Range/Units 00:46 00:46 PT 9.9 (9.8-11.6) sec APTT 25.7 (24.3-30.1) sec B-Natriuretic Peptide 135 H (0-100) pg/mL CBC 03/24/18 Range/Units 00:46 WBC 3.9 L (4.0-11.0) th/mm3 RBC 4.62 (4.50-5.90) mil/mm3 Hgb 13.7 (13.0-17.0) gm/dL Hct 39.5 (39.0-51.0) % Plt Count 165 (150-450) th/mm3 Neut # (Auto) 2.7 (1.8-7.7) th/mm3 Lymph # (Auto) 0.9 L (1.0-4.8) th/mm3 Pike # (Auto) 0.3 (0.0-0.9) th/mm3 Eos # (Auto) 0.1 (0.0-0.4) th/mm3 Baso # (Auto) 0.0 (0.0-0.2) th/mm3 Comprehensive Metabolic Panel 03/24/18 Range/Units 00:46 Sodium 136 (136-145) meq/L Potassium 4.1 (3.5-5.1) meq/L Chloride 100 (98-107) meq/L Carbon Dioxide 28.0 (21.0-32.0) meq/L BUN 18 (7-18) mg/dL Creatinine 1.11 (0.60-1.30) mg/dL Calcium 8.9 (8.5-10.1) mg/dL Intake and Output 03/23/18 03/24/18 03/24/18 22:59 06:59 14:59 Other: Weight 92.986 kg EKG interpretations - EKG EKG results cardiology: sinus rhythm, normal axis, normal QRS, normal ST/T (NSR , LVH) Caprini VTE Risk Assessment Caprini VTE Risk Assessment: No/Low Risk (score <= 1) Caprini Risk Assessment Model: Point Value = 1 Point Value = 2 Point Value = 3 Point Value = 5 Age 41-60 Minor surgery BMI > 25 kg/m2 Swollen legs Varicose veins or History of unexplained or recurrent spontaneous Oral contraceptives or hormone replacement Sepsis (< 1 month) Serious lung disease, including pneumonia (< 1 month) Abnormal pulmonary function Acute myocardial infarction Congestive heart failure (< 1 month) History of inflammatory bowel disease Medical patient at bed rest Age 61-74 Arthroscopic surgery Major open surgery (> 45 min) Laparoscopic surgery (> 45 min) Malignancy Confined to bed (> 72 hours) Immobilizing plaster cast Central venous access Age >= 75 History of VTE Family history of VTE Factor V Leiden Prothrombin [id number] Lupus anticoagulant Anticardiolipin antibodies Elevated serum homocysteine Heparin-induced thrombocytopenia Other congenital or acquired thrombophilia Stroke (< 1 month) Elective arthroplasty Hip, pelvis, or leg fracture Acute spinal cord injury (< 1 month) Prophylaxis Regimen: Total Risk Factor Score Risk Level Prophylaxis Regimen 0-1 Low Early ambulation 2 Moderate Order ONE of the following: *Sequential Compression Device (SCD) *Heparin 5000 units SQ BID 3-4 Higher Order ONE of the following medications: *Heparin 5000 units SQ TID *Enoxaparin/Lovenox 40 mg SQ daily (WT < 150 kg, CrCl > 30 mL/min) *Enoxaparin/Lovenox 30 mg SQ daily (WT < 150 kg, CrCl > 10-29 mL/min) *Enoxaparin/Lovenox 30 mg SQ BID (WT < 150 kg, CrCl > 30 mL/min) AND/OR *Sequential Compression Device (SCD) 5 or more Highest Order ONE of the following medications: *Heparin 5000 units SQ TID (Preferred with Epidurals) *Enoxaparin/Lovenox 40 mg SQ daily (WT < 150 kg, CrCl > 30 mL/min) *Enoxaparin/Lovenox 30 mg SQ daily (WT < 150 kg, CrCl > 10-29 mL/min) *Enoxaparin/Lovenox 30 mg SQ BID (WT < 150 kg, CrCl > 30 mL/min) AND *Sequential Compression Device (SCD) Assessment and Plan - Assessment (1) Atypical chest pain Code(s): R07.89 - Other chest pain Status: Acute Plan: Admitted to chest pain center. Continue ruling out ACS initiated in ER with 3 sets of EKGs and cardiac enzymes. Will be seen evaluated by Dr. Jostin Mane. Cardiac catheterization reviewed. Further recommendations to follow after evaluation by oil well perforator operator. (2) History of coronary artery disease Code(s): Z86.79 - Personal history of other diseases of the circulatory system Status: Chronic Plan: Aspirin daily. Likely therapy discontinued due to hepatitis C, discussed this with him in length. Encouraged him to establish with a local oil well perforator operator either as for service oriented clinic. (3) History of hypertension Code(s): Z86.79 - Personal history of other diseases of the circulatory system Status: Chronic Plan: Continue to monitor, continue lisinopril. Discussed importance of tight blood pressure control, increasing daily activity, and low sodium dietary modifications. Plan to refill lisinopril with refills. Made aware lisinopril is free at [facility] or [facility]. Keep scheduled appointment at [facility]. (4) HIV antibody positive Code(s): Z21 - Asymptomatic human immunodeficiency virus [HIV] infection status Status: Chronic Plan: Strongly encouraged follow-up with HIV positive result, made aware he could live a normal life with HIV diagnoses if treated with antivirals, preventing further disease state. (5) Hepatitis C Code(s): B19.20 - Unspecified viral hepatitis C without hepatic coma Status: Chronic Plan: Encouraged follow-up at local health department and/or [facility] to determine if he is a candidate for hepatitis C curative medication. Verbalized understanding. (6) Tobacco abuse Code(s): Z72.0 - Tobacco use Status: Chronic Plan: Strongly encouraged stress importance of tobacco cessation. Instructed to quit smoking.
[2018-03-24] MEDS ORDERED: Acetaminophen 500 MG Tablet PO PRN (10:36)
[2018-03-24] MEDS ORDERED: Lisinopril 10 MG Tablet PO SCH (11:00)
[2018-03-24] MEDS ORDERED: Furosemide 20 MG Tablet PO SCH (11:00)
[2018-03-24 11:51] VITALS: TEMP 98
--- NOTE | 2018-03-24 11:56 | P.PNCA ---
Subjective Interval history: Patient is a 52-year-old male with known coronary artery disease status post stent in July of this year by Dr. Robert. He was presented by the nurse practitioner subsequently his documentation was reviewed in detail along with his laboratory radiographic electrocardiographic information. Patient was then seen and examined personally. He presents with a very mottled history but appears to be unable to clearly understand or present to his own history. This is all complicated by history of HIV positive hep C positive which she is not following her treating he also continues to smoke. His current chest pain although very atypical certainly could represent ischemic heart disease and will require further evaluation. Of some importance is the fact that for about 2 months after his stent was placed in July he did feel significantly better and was not having chest discomfort. Physical Exam Vital signs: Vital Signs 03/24/18 00:08 03/24/18 00:35 03/24/18 00:50 Temperature 98.5 F Pulse Rate 102 H Respiratory Rate 20 Blood Pressure 177/119 H Blood Pressure [Left Arm] 151/76 H Blood Pressure [Right Arm] 158/85 H Pulse Oximetry 97 98 03/24/18 00:51 03/24/18 07:00 03/24/18 08:55 Temperature Pulse Rate 100 H 78 76 Respiratory Rate 16 14 16 Blood Pressure 134/75 152/82 H 139/82 Blood Pressure [Left Arm] Blood Pressure [Right Arm] Pulse Oximetry 98 97 03/24/18 10:00 Temperature Pulse Rate 76 Respiratory Rate 16 Blood Pressure 129/71 Blood Pressure [Left Arm] Blood Pressure [Right Arm] Pulse Oximetry 98 Intake & Output 03/23/18 03/24/18 03/24/18 18:59 06:59 18:59 Weight 92.986 kg Narrative: Well-nourished well-developed white male who seems slightly lethargic but responds quickly when interacted with. Skin is warm and dry head normocephalic Eyes DEANNA EOMI sclera clear Mouth mucous membranes moist and well papillated no lesions Neck supple no JVD masses nodes or bruits Chest diminished breath sounds but no rales wheezes or rhonchi Cardiovascular regular sinus rhythm no gallop rub or murmur Abdomen soft nontender no guarding or rebound the liver is nonpalpable Extremities show diffuse stasis pattern dermatitis of the left lower extremity however there is no edema and pulses are intact to the left lower Assessment and Plan - Assessment (1) Atypical chest pain Code(s): R07.89 - Other chest pain Status: Acute Plan: Admitted to chest pain center. Continue ruling out ACS initiated in ER with 3 sets of EKGs and cardiac enzymes. Will be seen evaluated by Dr. Jostin Mane. Cardiac catheterization reviewed. Further recommendations to follow after evaluation by [facility]. This patient's chest pain could certainly represent atypical ischemic pattern in view of his known three-vessel coronary artery disease. He may also have some recurrent disease in the area previously stented. In any case he will need to be fully evaluated in view of his problems with his extremities and nuclear stress testing likely the best to further differentiate. (2) History of coronary artery disease Code(s): Z86.79 - Personal history of other diseases of the circulatory system Status: Chronic Plan: Aspirin daily. Likely therapy discontinued due to hepatitis C, discussed this with him in length. Encouraged him to establish with a local [place] either as for service oriented clinic. (3) History of hypertension Code(s): Z86.79 - Personal history of other diseases of the circulatory system Status: Chronic Plan: Continue to monitor, continue lisinopril. Discussed importance of tight blood pressure control, increasing daily activity, and low sodium dietary modifications. Plan to refill lisinopril with refills. Made aware lisinopril is free at [facility] or [facility]. Keep scheduled appointment at [facility]. (4) HIV antibody positive Code(s): Z21 - Asymptomatic human immunodeficiency virus [HIV] infection status Status: Chronic Plan: Strongly encouraged follow-up with HIV positive result, made aware he could live a normal life with HIV diagnoses if treated with antivirals. (5) Hepatitis C Code(s): B19.20 - Unspecified viral hepatitis C without hepatic coma Status: Chronic Plan: Encouraged follow-up at local health department and/or [facility] to determine if he is a candidate for hepatitis C curative medication. Verbalized understanding. (6) Tobacco abuse Code(s): Z72.0 - Tobacco use Status: Chronic Plan: Strongly encouraged stress importance of tobacco cessation. Instructed to quit smoking. (7) Neutropenic Code(s): D70.9 - Neutropenia, unspecified Status: Acute Plan: White count 3.9. Afebrile. Obtain viral load.
--- NOTE | 2018-03-24 13:18 | ECG ---
Date Performed: 03/24/2018 Time Performed: 06:34:27 PTAGE: 52 years EKG: Sinus rhythm SEPTAL MYOCARDIAL INFARCTION ABNORMAL ECG PREVIOUS TRACING : 03/24/2018 03.34 Since the previous tracing, no significant change noted DOCTOR: Prince Thorpe Interpretating Date/Time 03/24/2018 13:17:39
--- NOTE | 2018-03-24 13:18 | ECG ---
Date Performed: 03/24/2018 Time Performed: 00:21:34 PTAGE: 52 years EKG: Sinus Tachycardia ABNORMAL RHYTHM ECG PREVIOUS TRACING : 08/17/2017 06.28 Compared to previous tracing, sinus rate is higher. Previou sly seen T-wave changes have resolved. DOCTOR: Prince Thorpe Interpretating Date/Time 03/24/2018 13:17:03
--- NOTE | 2018-03-24 13:18 | ECG ---
Date Performed: 03/24/2018 Time Performed: 03:34:04 PTAGE: 52 years EKG: Sinus rhythm MINIMAL VOLTAGE CRITERIA FOR LVH, CONSIDER NORMAL VARIANT MINIMAL ST DEPRESSION BORDERLINE ECG PREVIOUS TRACING : 03/24/2018 00.21 Compared to previous tracing, sinus rate is slower. DOCTOR: Prince Thorpe Interpretating Date/Time 03/24/2018 13:17:28
[2018-03-24] MEDS ORDERED: Regadenoson Inj 0.4 MG/5 ML Syringe IV.PUSH ONE (15:06)
[2018-03-24 16:18] VITALS: BP 153/94; PULSE 87; O2SAT 98
--- NOTE | 2018-03-24 16:34 | NM ---
EXAM DATE: 03/24/2018 4:02 PM EDT AGE/SEX: 52 years / Male INDICATIONS:Angina. Coronary artery disease Mid chest pain for two weeks. CLINICAL DATA: This is the patient's initial encounter. Patient reports that signs and symptoms have been present for 2 weeks and indicates a pain score of 4/10. MEDICAL/SURGICAL HISTORY: HIV. Hepatitis C. Congestive heart failure. Coronary artery stent. Inguinal hernia repair. COMPARISON: No prior exams available for comparison. No external comparison. DOSE: 8.8 mCi Tc 99m Myoview at rest 26.1 mCi [id number] at stress 0.4 mg Lexiscan STRESS SYMPTOMS: Short of breath and flush. EJECTION FRACTION: 35 % TECHNIQUE: The patient underwent pharmacologic stress with infusion of prescribed dose. Continuous ECG tracing was monitored during stress. Gated SPECT imaging was performed after stress and conventi onal SPECT imaging was performed at rest. The examination was performed on a SPECT/CT scanner, both attenuation and non-corrected datasets were reviewed. FINDINGS: Distribution: The maximum perfused segment at stress is in the septal wall. Perfusion Study: The pattern of perfusion at stress is within normal limits. Gated Study: There are intact wall motion and wall thickening without hypokinetic or dyskinetic segm ents. The ejection fraction is calculated at 35%. Risk Category: 2-Intermediate Risk. CONCLUSION: 1. No reversible perfusion defect. No focal wall motion abnormality. 2. Global hypokinesis with ejection fraction of 35%. Electronically signed by: Alvaro Gay MD 03/24/2018 4:33 PM EDT
--- NOTE | 2018-03-25 11:46 | TR ---
Date Performed: 03/24/2018 Time Performed: 15:14:52 DOCTOR: Zia Izaguirre DRUG LIST: CLINICAL HISTORY: ANGINA REASON FOR TEST: Angina REASON FOR ENDING: OBSERVATION: CONCLUSION: COMMENTS: Lexiscan stress test was performed under standard four minute protocol. Radionuclide was injected one minute prior to ending the test. No electrocardiographic abormalities were present t o suggest ischemia. Nuclear imaging and interpretation are pending.
== END 2018-03-24 18:22 | disposition home or self-care (01) ==
LOC: NEDA 00:07 → NEPC 00:07 → NEPGCP 10:57
PROVIDERS: ADMIT Internal Medicine Interventional Cardiology; ATTEND Internal Medicine Interventional Cardiology